=== PATIENT | female | born 1985 | race Two or more races ===

== ENCOUNTER 2022-08-16 09:56 | Outpatient (REF) | payer MEDICAID, OTHER, SELFPAY ==
--- NOTE | 2022-08-16 | PFT_ITS ---
INDICATIONS: Asthma. SPIROMETRY: The FEV1 to FVC of 90% with an FEV1 of 2.79 L, which is 109% predicted. FVC of 3.11 L, which is 101% predicted. No significant response to bronchodilators noted. Maximum voluntary ventilation 78% predicted. LUNG VOLUMES: Total lung capacity 97% predicted. DIFFUSION CAPACITY: DLCO 112% predicted. COMPARISONS: None. INTERPRETATION: No obstructive, nor restrictive ventilatory defects identified. No significant response to bronchodilators noted. There is a mild decrease in maximum voluntary ventilation, which could be secondary to deconditioning. Lung volumes are within normal limits. Diffusion capacity also within normal limits. If asthma is in the differential, methacholine challenge may be helpful in assessing for hyperreactive airways, otherwise clinical correlation warranted. Riccardo Reed MD MR/MODL / [id number]
== END 2022-08-16 09:57 | disposition home or self-care (01) ==
LOC: HO.RESP 09:56
PROVIDERS: PCP Family Medicine; Visit Provider Family Medicine
DX: J45.30 Mild persistent asthma, uncomplicated (principal)
CPT/HCPCS: 94060; 94727; 94729

== ENCOUNTER 2023-06-15 11:21 | Outpatient (REF) | payer MEDICAID, OTHER, SELFPAY ==
[2023-06-15 13:05] LABS: MANUAL DIFF FLAG NO
[2023-06-15 13:20] LABS: Basophils Absolute Auto 0.1 X10*3/uL (0.0-0.2); Basophils Percent Auto 2.1 % (0-2); Eosinophils Absolute Auto 0.5 X10*3/uL (0.0-0.4); Eosinophils Percent Auto 8.5 % (0-4); Hematocrit 41.8 % (37.0-47.0); Hemoglobin 13.4 g/dl (12.0-16.0); Imm Gran Abs Auto 0.02 X10*3/uL (0.00-0.03); Imm Gran Pct Auto 0.3 % (0.0-0.4); Lymphocytes Absolute Auto 2.4 X10*3/uL (1.2-4.9); Lymphocytes Percent Auto 39.1 % (20-40); Mean Corpuscular HGB Conc 32.1 g/dl (31.0-35.0); Mean Corpuscular Hemoglobin 30.3 pg (27.0-33.0); Mean Corpuscular Volume 94.6 fL (80.0-98.0); Mean Platelet Volume 11.6 fL (9.4-12.3); Monocytes Absolute Auto 0.4 X10*3/uL (0.1-1.2); Monocytes Percent Auto 6.8 % (2-11); Neutrophils Absolute Auto 2.7 x10*3/uL (2.0-8.3); Neutrophils Percent Auto 43.2 % (45-73); Platelet Count 292 X10*3/uL (160-400); Red Blood Count 4.42 X10*6/uL (4.20-5.50); Red Cell Distribution Width 13.4 % (11.0-16.0); White Blood Count 6.2 X10*3/uL (4.8-10.8)
[2023-06-15 13:30] LABS: Cholesterol 289 mg/dL (<200); HDL Cholesterol 60 mg/dL (>40); LDL Cholesterol Calculated 206 mg/dL (<100); Triglycerides 117 mg/dL (<150)
[2023-06-15 13:35] LABS: Estimated Average Glucose 80 mg/dL; Hemoglobin A1c % 4.4 % (<6.0)
[2023-06-15 13:45] LABS: Alanine Aminotransferase 16 U/L (0-31); Albumin Level 4.4 g/dL (3.5-5.0); Alkaline Phosphatase 82 U/L (39-117); Anion Gap 12 (12-20); Aspartate Amino Transferase 20 U/L (5-31); Bilirubin Total 0.4 mg/dL (0.0-1.0); Blood Urea Nitrogen 13 mg/dL (9-16); Carbon Dioxide 27 mmol/L (22-29); Chloride 105 mmol/L (96-108); Estimated Glomerular Filt Rate > 60; Glucose Random 84 mg/dL (60-115); Potassium 4.2 mmol/L (3.3-5.1); Sodium 140 mmol/L (135-145); Total Protein 7.8 g/dL (6.5-8.0)
[2023-06-15 13:51] LABS: TSH reflex Free T4 1.29 uIU/mL (0.32-4.0)
[2023-06-15 15:49] LABS: Reflex LDLD? No
== END 2023-06-15 11:22 | disposition home or self-care (01) ==
LOC: HO.HHCL 11:21
PROVIDERS: Visit Provider Family Medicine
DX: R53.83 Other fatigue (principal); E66.3 Overweight
CPT/HCPCS: 36415; 80053; 80061; 83036; 84443; 85025

== ENCOUNTER 2023-06-28 13:55 | Outpatient (REF) | payer MEDICAID, OTHER, SELFPAY ==
--- NOTE | ~2023-06-28 | US_ITS ---
EXAMINATION: US PELVIS CLINICAL INFORMATION: Abnormal uterine and vaginal bleeding; the last menstrual period was on 06/19/2023. COMPARISON: None available. TECHNIQUE: Ultrasound of the pelvis is performed using both transabdominal and transvaginal transducers along with Doppler. Transvaginal imaging is performed due to inadequate visualization transabdominally. FINDINGS: Uterus: The uterus is anteverted and retroflexed. The uterus measures 9.9 x 4.4 x 5.9 cm. Nabothian cysts are seen within the cervix. The double wall endometrial thickness is 0.9 mm. The uterus is smooth in contour and has normal myometrial echogenicity. No visible fibroid. Adnexa: Both ovaries are visualized. There is normal color flow to the adnexa. There is no ovarian torsion. There is no pelvic ascites or fluid collection. Right ovary measures 3.0 x 1.3 x 2.5 cm, volume 5.1 mL. Left ovary measures 2.9 x 1.0 x 2.4 cm, volume 3.7 mL. US/US pelvic and transvaginal IMPRESSION: Nabothian cysts are seen within the cervix. The examination is otherwise unremarkable.
== END 2023-06-28 13:56 | disposition home or self-care (01) ==
LOC: HO.US 13:55
PROVIDERS: PCP Family Medicine; Visit Provider Family Medicine
DX: N93.9 Abnormal uterine and vaginal bleeding, unspecified (principal)
CPT/HCPCS: 76830; 76856

== ENCOUNTER 2023-07-27 08:53 | Outpatient (REF) | payer MEDICAID, OTHER, SELFPAY ==
--- NOTE | ~2023-07-27 | MM_ITS ---
EXAMINATION: MM SCREENING DIGITAL BREAST TOMOSYNTHESIS, BILATERAL CLINICAL INFORMATION: Screening. Asymptomatic. COMPARISON: Mammography: This study is a baseline examination. TECHNIQUE: Digital breast tomosynthesis is performed in both the craniocaudal and mediolateral oblique views along with computer-aided detection (CAD). Synthesized 2D images are generated from the tomosynthesis. FINDINGS: The breasts are heterogeneously dense, which may obscure small masses (ACR BI-RADS breast composition Category c). There are no significant masses, abnormal calcifications, or other abnormalities. MM/MM tomosynthesis screening BI IMPRESSION: No mammographic evidence of malignancy. ASSESSMENT: BI-RADS BI-RADS 1 - Negative RECOMMENDATION: Routine annual mammography screening. 1 year F/U This examination should not preclude the clinical evaluation of a suspicious palpable abnormality. This patient's information was entered into a reminder system with a target due date for their next mammogram.
== END 2023-07-27 08:54 | disposition home or self-care (01) ==
LOC: HO.MAMMO 08:53
PROVIDERS: PCP Family Medicine; Visit Provider Family Medicine
DX: Z12.31 Encounter for screening mammogram for malignant neoplasm of breast (principal)
CPT/HCPCS: 77063; 77067

== ENCOUNTER → 2023-07-27 09:00 | Outpatient (BNV) | payer SELFPAY | PROVIDERS: PCP Family Medicine; Visit Provider Radiology Diagnostic Radiology | DX: Z12.31 Encounter for screening mammogram for malignant neoplasm of breast (principal) | CPT/HCPCS: 77063; 77067 ==

== ENCOUNTER 2024-05-29 17:29 | Outpatient (REF) | payer MEDICAID, OTHER, SELFPAY ==
[2024-05-31 16:58] LABS: HPV mRNA E6/E7 Not Detected (Not Detected)
== END 2024-05-29 17:30 | disposition home or self-care (01) ==
LOC: HO.HHCLNP 17:29
PROVIDERS: Visit Provider Family Medicine
DX: Z01.419 Encounter for gynecological examination (general) (routine) without abnormal findings (principal)
CPT/HCPCS: 36415; 87624; 88175

== ENCOUNTER 2024-07-29 08:29 | Outpatient (REF) | payer MEDICAID, OTHER, SELFPAY ==
--- NOTE | ~2024-07-29 | MM_ITS ---
EXAMINATION: MM SCREENING DIGITAL BREAST TOMOSYNTHESIS, BILATERAL CLINICAL INFORMATION: Screening. Asymptomatic. COMPARISON: Mammography: Comparison is made with available priors TECHNIQUE: Digital breast mammography with tomosynthesis is performed in both the craniocaudal and mediolateral oblique views along with computer-aided detection (CAD). FINDINGS: The breasts are heterogeneously dense, which may obscure small masses (ACR BI-RADS breast composition Category c). There are no significant masses, abnormal calcifications, or other abnormalities. MM/MM tomosynthesis screening BI IMPRESSION: No mammographic evidence of malignancy. ASSESSMENT: BI-RADS BI-RADS 1 - Negative RECOMMENDATION: Routine annual mammography screening. 1 year F/U This examination should not preclude the clinical evaluation of a suspicious palpable abnormality. This patient's information was entered into a reminder system with a target due date for their next mammogram. Electronically signed by: Fabiola Lange DO 08/06/2024 10:37 AM [facility]
== END 2024-07-29 08:30 | disposition home or self-care (01) ==
LOC: HO.MAMMO 08:29
PROVIDERS: PCP Family Medicine; Visit Provider Family Medicine
DX: Z12.31 Encounter for screening mammogram for malignant neoplasm of breast (principal)
CPT/HCPCS: 77063; 77067

== ENCOUNTER → 2024-07-29 08:45 | Outpatient (BNV) | payer MEDICAID, SELFPAY | PROVIDERS: PCP Family Medicine; Visit Provider Internal Medicine | DX: Z12.31 Encounter for screening mammogram for malignant neoplasm of breast (principal) | CPT/HCPCS: 77063; 77067 ==

== ENCOUNTER 2025-02-05 10:59 | Outpatient (REF) | payer MEDICAID, OTHER, SELFPAY ==
--- OUTSIDE RECORDS SUMMARY | 2025-02-05 12:03 | XMS_ITS | Referral Summary ---
Author Organization [facility] Address [address] [place] [address] Care Team Providers Care Air Sampler Name Role Phone Vee Perry Primary Care Provider [phone] Encounters Date Type Department Care Team Description 01/31/2025 Orders Only [facility] [address] [place] [phone] Auto Clutch Specialist: Shelli Telles MD Axillary fullness (Primary Dx) 11/21/2024 10:40 AM EST Follow-Up [facility] [address] [place] [phone] Auto Clutch Specialist: Shelli Telles MD Rheumatoid arthritis of multiple sites with negative rheumatoid factor (Primary Dx); Alopecia; Axillary fullness; Trochanteric bursitis of both hips from Last 3 Months Allergies Active Allergy Reactions Criticality Noted Date Comments Bee Venom Protein (Honey Bee) Anaphylaxis,Hives,Swelling High 11/21/2024 Oat Bran Heartburn 04/18/2024 [place] Itching,Palpitations,Rash 11/21/2024 Peanut Abdominal Pain,Hives,Swelling High 11/21/2024 Medications Ventolin HFA 90 mcg/actuation inhaler Inhale 2 puffs by mouth 4 times a day as needed. 12/12/19 24 Active albuterol 2.5 mg/3 mL (0.083%) nebulizer solution INHALE 1 AMPULE USING A NEBULIZER EVERY 6 HOURS NEEDED FOR WHEEZING. 11/27/19 24 Active cetirizine (ZyrTEC) 10 mg tablet SMARTSI Tablet(s) By Mouth Every Morning 11/22/19 24 Active cyclobenzaprin e (FLEXERIL) 5 mg tablet SMARTSI Tablet(s) By Mouth Every Night PRN 11/22/19 24 Active EPINEPHrine (EPIPEN) 0.3 mg/0.3 mL injection syringe INJECT INTRAMUSCULARLY DIRECTED ON PACKAGE AND GO TO EMERGENCY ROOM 11/27/19 24 Active Arnuity Ellipta 100 mcg/actuation blister with device SMARTSI Puff(s) By Mouth Every Morning Active meloxicam (MOBIC) 15 mg tablet SMARTSI Tablet(s) By Mouth Daily PRN 11/22/19 24 Active Asmanex HFA 200 mcg/actuation SMARTSI Puff(s) By Mouth Morning-Night 11/23/19 24 Active montelukast (SINGULAIR) 10 mg tablet SMARTSI Tablet(s) By Mouth Every Evening 11/22/19 24 Active adalimumab (Humira,CF, Pen) 40 mg/0.4 mL pen injector kitIndications :Rheumatoid arthritis of multiple sites with negative rheumatoid factor (HCC) Inject 0.4 mL (40 mg total) under the skin every 14 days. 0.8 mL 5 01/20/2025 3:56 PM EDT 10/15/19 25 025 Active folic acid (FOLVITE) 1 mg tabletIndicati ons:Rheumatoid arthritis of multiple sites with negative rheumatoid factor (HCC) Take 1 tablet (1 mg total) by mouth once a day. 90 tablet 3 11/26/2024 10:03 AM EST 11/21/19 25 026 Active Active Problems No known active problems Social History Tobacco Use Types Packs/Day Years Used Date Smoking Tobacco: Never Passive Smoke Exposure: Never Smokeless Tobacco: Never Tobacco Cessation:Counseling Given: Not Answered Alcohol Use Standard Drinks/Week Comments Not Currently 0 (1 standard drink = 0.6 oz pur e alcohol) Comments Unknown Sex and Gender Information Value Date Recorded Sex Assigned at Female 01/15/2024 1:23 PM EDT Legal Sex Female 9:26 AM EDT Gender Identity Not on file Sexual Orientation Not on file Last Filed Vital Signs Vital Sign Reading Time Taken Comments Blood Pressure 101/70 11/21/2024 10:03 AM EST Pulse 86 11/21/2024 10:03 AM EST Temperature 36.4 ??C (97.6 ??F) 11/21/2024 10:[address] Respiratory Rate - - Oxygen Saturation - - Inhaled Oxygen Concentration - - Weight 66.7 kg (147 lb) 11/21/2024 10:03 AM EST Height 149.9 cm (4' 11 ) 11/21/2024 10:03 AM EST Body Mass Index 29.69 11/21/2024 10:03 AM EST Plan of Treatment Upcoming Encounters Date Type Department Care Team (Late st Contact Info) Description 05/22/2025 10:40 AM EDT Follow-Up [facility] [address] [place] [phone] Auto Clutch Specialist: Shelli Telles MD [address] [place] [address] [phone] 05/27/2025 10:30 AM EDT Office Visit [facility] [address]th [address] [place] [address], [place] [phone] Auto Clutch Specialist: Ambrose Bryant PA [address] [place] [phone] Procedures * Due to [place] state law, this organization might not be sharing negative HIV tests. Procedure Name Priority Date/Time Associated Diagnosis Comments PETERSON, TITER AND PATTERN Routine 11:35 AM EST Rheumatoid arthritis of multiple sites with negative rheumatoid factor Alopecia CBC AUTO DIFFERENTIAL Routine 11/21/2024 11:35 AM EST Rheumatoid arthritis of multiple sites with negative rheumatoid factor Alopecia COMPREHENSIVE METABOLIC PANEL Routine 11/21/2024 11:35 AM EST Rheumatoid arthritis of multiple sites with negative rheumatoid factor Alopecia SEDIMENTATION RATE, AUTOMATED Routine 11/21/2024 11:35 AM EST Rheumatoid arthritis of multiple sites with negative rheumatoid factor Alopecia C-REACTIVE PROTEIN Routine 11/21/2024 11 :35 AM EST Rheumatoid arthritis of multiple sites with negative rheumatoid factor Alopecia PETERSON SPECIFIC ANTIBODY Routine 11/21/2024 11:35 AM EST Rheumatoid arthritis of multiple sites with negative rheumatoid factor Alopecia PETERSON SCREEN, IFA, W/REFLEX TO TITER & PATTERN Routine 11/21/2024 11:35 AM EST Rheumatoid arthritis of multiple sites with negative rheumatoid factor Alopecia DC ARTHROCENTESIS ASPIR&/INJ MAJOR JT/BURSA W/O US Routine 11/21/2024 10:40 AM EST Trochanteric bursitis of both hips HEPATITIS C ANTIBODY W/REFLEX TO HCV RNA, QUANTITATIVE PCR Routine 01/15/2024 2:50 PM EDT Rheumatoid arthritis of multiple sites with negative rheumatoid factor from Last 3 Months or Most Recently Relevant to Health Maintenance Results * Due to [place] state law, this organization might not be sharing negative HIV tests. * (ABNORMAL) PETERSON, Titer and Pattern (11/21/2024 11:35 AM EST) PETERSON Titer 1 1:40(H) titer 11/27/2024 2:01 PM EST [employer] Comment: A low level PTEERSON titer may be present in pre-clinical autoimmune diseases and normal individuals. ?Reference Range ?<1:40 ?Negative ?1:40-1:80 ?Low Antibody Level ?>1:80 ?Elevated Antibody Level PETERSON Pattern 1 Mitotic, Spindle Fibers(A) 11/27/2024 2:01 PM EST [employer] Comment: The spindle fibers between the poles are stained in mitotic cells, associated with cone-shaped decoration of the mitotic poles. The pattern is rare in Sjogren's syndrome, systemic lupus erythematosus (SLE), and other connective tissue diseases. AC-25: [employer]indle [employer] International Consensus on PETERSON Patterns (https://doi.org/10.1515/dwyf-3006-0298) Blood Structure of peripheral vein / Unknown Venipuncture / Unknown 11/21/2024 11:35 AM EST 11/21/2024 11:53 AM EST Narrative [facility] - 11/27/2024 2:01 PM EST [facility] Received Date: Shelli Billings MD LAB BLOOD ORDERABLES Final Res ult [address]rd Floor, [place] [address], [place] [phone] [employer] [facility] [address] [facility] [address] [facility], [place] [address], [place] [phone] * (ABNORMAL) CBC Auto Differential (11/21/2024 11:35 AM EST) WBC 6.5 3.8 - 10.8 10*3/uL 11/21/2024 12:01 PM EST [facility] RBC 4.25 3.80 - 5.10 10*6/uL 11/21/2024 12:01 PM EST [facility] Hemoglobin 12.8 11.7 - 15.5 g/dL 11/21/2024 12:01 PM EST [facility] Hematocrit 40.8 35.0 - 45.0 % 11/21/2024 12:01 PM EST [facility] MCV 96.0 80.0 - 100.0 fL 11/21/2024 12:01 PM EST [facility] MCH 30.1 27.0 - 33.0 pg 11/21/2024 12:01 PM EST [facility] MCHC 31.4(L) 32.0 - 36.0 g/dL 11/21/2024 12:01 PM [facility] RDW 13.2 11.0 - 15.0 % 11/21/2024 12:01 PM [facility] Platelets 321 140 - 400 10*3/uL 11/21/2024 12:01 PM [facility] MPV 10.5 7.5 - 12.5 fL 11/21/2024 12:01 PM [facility] Neutrophil % 46.1 % 11/21/2024 12:01 PM [facility] Immature Grans % 0.3 0.0 - 0.9 % 11/21/2024 12:01 PM [facility] Lymphocyte % 37.8 % 11/21/2024 12:01 PM [facility] Monocyte % 7.1 % 11/21/2024 12:01 PM [facility] Eosinophil % 7.0 % 11/21/2024 12:01 PM [facility] Basophil % 1.7 % 11/21/2024 12:01 PM [facility] Neutrophil # 2.98 1.50 - 7.80 10*3/uL 11/21/2024 12:01 PM [facility] Immature Grans # <0.03 <=0.03 10*3/uL 11/21/2024 12:01 PM [facility] Lymphocyte # 2.40 0.85 - 3.90 10*3/uL 11/21/2024 12:01 PM [facility] Monocyte # 0.50 0.20 - 0.95 10*3/uL 11/21/2024 12:01 PM [facility] Eosinophil # 0.50 0.02 - 0.50 10*3/uL 11/21/2024 12:01 PM [facility] Basophil # 0.10 0.00 - 0.20 10*3/uL 11/21/2024 12:01 PM EST [facility] nRBC % 0.0 /100 WBCs 11/21/2024 12:01 PM EST [facility] nRBC # <0.01 <0.01 10*3/uL 11/21/2024 12:01 PM EST [facility] Blood Structure of peripheral vein / Unknown Venipuncture / Unknown 11/21/2024 11:35 AM EST 11/21/2024 11:53 AM EST Shelli Billings MD LAB BLOOD ORDERABLES Final Res ult Performing Organization Address City/[facility]/ZIP Co de Phone Number [facility] [address] [place] [address], [place] * (ABNORMAL) PETERSON Screen, IFA, w/Reflex to Titer & Pattern (11/21/2024 11:35 AM EST) PETERSON Screen, IFA POSITIVE (A) NEGATIVE 11/27/2024 2:01 PM EST [employer] [facility] Comment: PETERSON IFA is a first line screen for detecting the presence of up to approximately 150 autoantibodies in various autoimmune diseases. A positive PETERSON IFA result is suggestive of autoimmune disease and reflexes to titer and pattern. Further laboratory testing may be considered if clinically indicated. For additional information, please refer to http://education.[employer]/faq/FJK895 (This link is being provided for informational/ educational purposes only.) ?? Blood Structure of peripheral vein / Unknown Venipuncture / Unknown 11/21/2024 11:35 AM EST 11/21/2024 11:53 AM EST Narrative [facility] - 11/27/2024 2:01 PM EST [facility] Received Date:[id number] Shelli Billings MD LAB BLOOD ORDERABLES Final Res ult Performing Organization Address City/[facility]/ZIP Co de Phone Number [facility] [address] [place] [address] [address]rd Floor, [place] [address], [place] [phone] [employer] [address] Floor, [place] [address], [place] [phone] * Sedimentation rate, automated (11/21/2024 11:35 AM EST) Sed Rate 5 <20 mm/Hr mm/Hr 11/21/2024 12:03 PM EST [facility] Blood Structure of peripheral vein / Unknown Venipuncture / Unknown 11/21/2024 11:35 AM EST 11/21/2024 11:53 AM EST us Shelli Billings MD LAB BLOOD ORDERABLES Final Res ult Performing Organization Address City/[facility]/ZIP Co de Phone Number [facility] [address] [place] [address], * C-reactive protein (11/21/2024 11:35 AM EST) Pathologist [facility] C Reactive Protein 3.4 <=9.9 mg/L 11/21/2024 12:27 PM EST [facility] Blood Structure of peripheral vein / Unknown Venipuncture / Unknown 11/21/2024 11:35 AM EST 11/21/2024 11:53 AM EST Shelli Billings MD LAB BLOOD ORDERABLES Final Res ult Performing Organization Address City/[facility]/ZIP Co de Phone Number [facility] [address] [place] [phone], [place] * PETERSON Specific Antibody w/Reflex to [place] (11/21/2024 11:35 AM EST) PETERSON Screen, Immunoassay NEGATIVE NEGATIVE 11/22/2024 5:11 PM EST [employer] [facility] Comment: A negative PETERSON Multiplex indicates the absence of detectable antibodies to component analytes consisting of double stranded DNA (dsDNA), chromatin, ribonucleoprotein (PAPER GLUING OPERATOR), Khan/PAPER GLUING OPERATOR (Sm/PAPER GLUING OPERATOR), Khan (Sm), SS-A, SS-B, Chitra-1, centromere B, Scl-70 and ribosomal P. A negative result should be interpreted in the context of the clinical and laboratory findings and does not rule out autoimmune disease characterized by other autoantibody specificities such as rheumatoid arthritis, autoimmune hepatitis, primary biliary cirrhosis, autoimmune thyroiditis, Potter's disease, pernicious anemia, autoimmune neuropathies, vasculitis, celiac disease, and bullous disease. For additional information, please refer to http://education.[employer]/faq/KFJ706 (This link is being provided for informational/ educational purposes only.) ?? Blood Structure of peripheral vein / Unknown Venipuncture / Unknown 11/21/2024 11:35 AM EST 11/21/2024 11:53 AM EST [facility] - 11/22/2024 5:11 PM EST [facility] Received Date: Shelil Billings MD LAB BLOOD ORDERABLES Final Res ult [facility] [address] [facility] [address]rd Floor, [place] [address], [employer] [facility] [address] [facility] [address], [place] [address], * (ABNORMAL) Comprehensive Metabolic Panel (11/21/2024 11:35 AM EST) NA 138 135 - 145 mmol/L 11/21/2024 12:27 PM EST [facility] K 4.1 3.5 - 5.3 mmol/L 11/21/2024 12:27 PM EST [facility] Cl 103 98 - 107 mmol/L 11/21/2024 12:27 PM EST [facility] CO2 25 22 - 32 mmol/L 11/21/2024 12:27 PM EST [facility] Anion Gap 10 5 - 15 11/21/2024 12:27 PM EST [facility] Glucose 89 65 - 99 mg/dL 11/21/2024 12:27 PM [facility] Creatinine 0.68 0.50 - 1.20 mg/dL 11/21/2024 12:27 PM [facility] Calcium 9.0 8.6 - 10.5 mg/dL 11/21/2024 12:27 PM [facility] Total Protein 7.2 6.0 - 8.0 g/dL 11/21/2024 12:27 PM [facility] Albumin 4.2 3.5 - 5.2 g/dL 11/21/2024 12:27 PM [facility] Bilirubin, Total 0.3 0.2 - 1.2 mg/dL 11/21/2024 12:27 PM [facility] Alkaline Phosphatase 83 35 - 129 U/L 11/21/2024 12:27 PM [facility] AST 26 10 - 40 U/L 11/21/2024 12:27 PM [facility] ALT 20 10 - 40 U/L 11/21/2024 12:27 PM [facility] BUN 11 7 - 23 mg/dL 11/21/2024 12:27 PM [facility] eGFR >90 >=60 mL/min/1. 73m2 11/21/2024 12:27 PM [facility] Comment:The estimated glomer ular filtration rate (eGFR) is calculated using a new formula developed by the NKF-ASN task force to eliminate race-based correction factors. The new formula uses serum/plasma creatinine, age, and gender to determine eGFR. A value below 60mls/min might indicate kidney disease and will be flagged. For additional information, see Sunita et al, Am J Kidney Dis. 2021;79(2):268- 288, A Unifying Approach for GFR estimation: Recommendations of the NKF-ASN Task Force on Reassessing the Inclusion of Race in Diagnosing Kidney Disease . Globulin, Total 3.0 2.1 - 4.2 g/dL 11/21/2024 12:27 PM EST [facility] A/G Ratio 1.4(L) 1.5 - 3.0 11/21/2024 12:27 PM EST [facility] Blood Structure of peripheral vein / Unknown Venipuncture / Unknown 11/21/2024 11:35 AM EST 11/21/2024 11:53 AM EST us Shelli Billings MD LAB BLOOD ORDERABLES Final Res ult [facility] [address] [place] [address], [place] * DC ARTHROCENTESIS ASPIR&/INJ MAJOR JT/BURSA W/O US (11/21/2024 10:40 AM EST) Narrative Shelli Billings MD - 11/21/2024 10:40 AM EST Shelli Billings MD ? 11/21/2024 12:16 PM Large Joint Arthrocentesis: L greater trochanteric bursa, R greater trochanteric bursa ? Indication(s): Trochanteric bursitis ? Date/Time: 11/21/2024 10:40 AM ? Performed by: Shelli Billings MD ? Authorized by: Shelli Billings MD Consent: ? Patient identity confirmed: Name and with patient and Verbally ? Verbal consent obtained: Yes ? Written consent obtained: Yes ? Risk and benefits discussed: Yes ? Written informed consent was obtained from the patient. ? Patient states understanding of procedure being performed: Yes ? Patient's understanding of procedure matches consent: Yes [place] Protocol: ? Procedure consent matches procedure scheduled: Yes ? All relevant documents/tests are correctly identified, labeled, and matched to patient: Yes ? Relevant tests/ Imaging studies available/reviewed: Yes ? Correct site marked: Yes ? Required blood products, implants, devices and special equipment available: N/A ? Immediately prior to the procedure a time out was called: Yes An attending physician was present for the procedure OR the procedure was performed by an Advanced Practice Provider: Yes Procedure Details: ? Location: hip - L greater trochanteric bursa and R greater trochanteric bursa ? Site Prep: Betadine Left ? Topical Anesthetic: ethyl chloride (cold spray) ? Syringe Size:5 mL ? Needle size: 25 G ? Approach: lateral ? Medications administered: 2 mL lidocaine PF 1% (10 mg/mL); 60 mg methylPREDNISolone acetate 80 mg/mL Right ? Topical Anesthetic: ethyl chloride (cold spray) ? Syringe Size:5 mL ? Needle size: 25 G ? Approach: lateral ? Medications administered: 2 mL lidocaine PF 1% (10 mg/mL); 60 mg methylPREDNISolone acetate 80 mg/mL ? Dressing: Band-Aid Post-procedure Details: ? Patient tolerance: patient tolerated the procedure well with no immediate complications ? Instructions: post-procedure instructions were reviewed ? Discharge: patient discharged from clinic in stable condition Shelli Billings MD IN CLINIC/BEDSIDE ORDERABLES F inal Result * Hepatitis C Antibody w/Reflex to HCV RNA, Quantitative PCR (01/15/2024 2:50 PM EDT) Pathologist [facility] Hepatitis C Antibody NON-REACT BRITTA NON-REACT BRITTA 01/16/2024 1:15 AM EDT [employer] [facility] Comment: HCV antibody was non-reactive. There is no laboratory evidence of HCV infection. In most cases, no further action is required. However, if recent HCV exposure is suspected, a test for HCV RNA (test code 69010) is suggested. For additional information please refer to http://education.[employer]/faq/UVS98e5 (This link is being provided for informational/ educational purposes only.) Blood Structure of peripheral vein / Unknown Venipuncture / Unknown 01/15/2024 2:50 PM EDT 01/15/2024 3:09 PM EDT Narrative [facility] - 01/16/2024 1:15 AM EDT [facility] Received Date: Shelli Billings MD LAB BLOOD ORDERABLES Final Res ult [facility] [address] [facility] 3rd Floor, [place] [address], [place] [phone] [facility] [address] [facility] 3rd Floor, [place] [address], [place] [phone] from Last 3 Months or Most Recently Relevant to Health Maintenance Insurance [facility] HSNO/FREE CARE Care Teams Air Sampler Relationship Specialty Start Date End Date Vee Perry [address] [place] [phone] PCP - General Family Medicine 12/30/22
--- OUTSIDE RECORDS SUMMARY | 2025-02-05 12:03 | XMS_ITS | Clinical Summary ---
Author Organization [facility] Address [address] [place] [address] Care Team Providers Care Equity Trader Name Role Phone Orlando Vee Primary Care Provider [phone] Allergies Active Allergy Reactions Criticality Noted Date Comments Bee Venom Protein (Honey Bee) Anaphylaxis,Hives,Swelling High 11/21/2024 Oat Bran Heartburn 04/18/2024 [place] Itching,Palpitations,Rash 11/21/2024 Peanut Abdominal Pain,Hives,Swelling High 11/21/2024 [...] Active Active Problems No known active problems Encounters Date Type Department Care Team Description 01/31/2025 Orders Only [facility] [address] [place] [phone] Tip Stretcher: Shelli Telles MD Axillary fullness (Primary Dx) 11/21/2024 10:40 AM EST Follow-Up [facility] [address] [place] [address] 127[address] Tip Stretcher: Shelli Telles MD Rheumatoid arthritis of multiple sites with negative rheumatoid factor (Primary Dx); Alopecia; Axillary fullness; Trochanteric bursitis of both hips from Last 3 Months Social History Tobacco Use Types Packs/Day Years [...] Info) Description 05/22/2025 10:40 AM EDT Follow-Up [facility] [address] [place] [address] [phone] Tip Stretcher: Shelli Telles MD [address] [place] [address] [phone] 05/27/2025 10:30 AM EDT Office Visit [facility] 4th Floor [address] [facility], [place] [address] Tip Stretcher: Ambrose Bryant PA [address] [place] [address] [phone] Health Maintenance Due Date Last Done Comments Cervical Cancer Screening 1983 HIV Screening 1983 HPV and Pap Smear 1983 Pap Smear 1983 Varicella Vaccines (1 of 2 - 13+ 2-dose series) 1996 Hepatitis B Vaccines (1 of 3 - 19+ 3-dose series) 2002 COVID-19 Vaccine (2023-2 5 season) 2024 07/21/2021, 01/07/2021, 12/10/2020 Alcohol/Substance Use Screening 09/25/2024 Depression Screening and Follow-Up 09/25/2024 Social Drivers of Health Adia ual Screening 09/25/2024 Influenza Vaccine (Season Ended) 2025 07/30/2021, 08/05/2020, 06/28/2019, Additional history exists Mammogram 07/27/2025 07/27/2023 Pneumococcal Vaccine: Pediat gabe (0-5 Years) and At-Risk Patients (6-50 Years) (3 of 3 - PCV20 or PCV21) 2033 01/19/2015, 04/27/2011 DTaP,Tdap,and Td Vaccines (3 - Td or Tdap) 05/29/2034 05/29/2024, 04/27/2011 RSV Vaccine (60+ years old a nd patients) (1 - 1-dose 75+ series) 2058 Hepatitis C Screening Completed 01/15/2024 Procedures * Due to [place] state law, this organization might not be [...] multiple sites with negative rheumatoid factor Alopecia CO ARTHROCENTESIS ASPIR&/INJ MAJOR JT/BURSA W/O US Routine 11/21/2024 10:40 AM EST Trochanteric bursitis of both hips HEPATITIS C ANTIBODY W/REFLEX TO HCV RNA, QUANTITATIVE PCR Routine 01/15/2024 2:50 PM EDT Rheumatoid arthritis of multiple sites with negative rheumatoid factor from Last 3 Months or Most Recently Relevant to Health Maintenance Results * Due to [place] state law, this organization might not be sharing negative HIV tests. * (ABNORMAL) PETERSON, Titer and Pattern (11/21/2024 11:35 AM EST) PETERSON Titer 1 1:40(H) titer 11/27/2024 2:01 PM EST [employer] To Get Approved For Comment: A low level PETERSON titer may be present in pre-clinical autoimmune diseases and normal individuals. ?Reference Range ?<1:40 ?Negative ?1:40-1:80 ?Low Antibody Level ?>1:80 ?Elevated Antibody Level PETERSON Pattern 1 Mitotic, Spindle Fibers(A) 11/27/2024 2:01 PM EST [employer] To Get Approved For Comment: The spindle fibers between the poles are stained in mitotic cells, associated with cone-shaped decoration of the mitotic poles. The pattern is rare in Sjogren's syndrome, systemic lupus erythematosus (SLE), and other connective tissue diseases. AC-25: Spindle Fibers International Consensus on PETERSON Patterns (https://doi.org/10.1515/jxky-3281-9700) Blood Structure of peripheral vein / Unknown Venipuncture / Unknown 11/21/2024 11:35 AM EST 11/21/2024 11:53 AM EST Narrative [facility] - 11/27/2024 2:01 PM EST [facility] Received Date: Shelli Billings MD LAB BLOOD ORDERABLES Final Res ult [facility] [address] [facility] [address] Floor, [place] [address], [place] [phone] [email or web address] [facility] [address] [facility] 3rd Floor, [place] [address], [place] [phone] * (ABNORMAL) CBC Auto Differential (11/21/2024 11:35 AM EST) WBC 6.5 3.8 - 10.8 10*3/uL 11/21/2024 12:01 PM EST [facility] RBC 4.25 3.80 - 5.10 10*6/uL 11/21/2024 12:01 PM [facility] Hemoglobin 12.8 11.7 - 15.5 g/dL 11/21/2024 12:01 PM [facility] Hematocrit 40.8 35.0 - 45.0 % 11/21/2024 12:01 PM EST [facility] MCV 96.0 80.0 - 100.0 fL 11/21/2024 12:01 PM [facility] MCH 30.1 27.0 - 33.0 pg 11/21/2024 12:01 PM [facility] MCHC 31.4(L) 32.0 - 36.0 g/dL 11/21/2024 12:01 PM EST [facility] RDW 13.2 11.0 - 15.0 % 11/21/2024 12:01 PM EST [facility] Platelets 321 140 - 400 10*3/uL 11/21/2024 12:01 PM [facility] MPV 10.5 7.5 - 12.5 fL 11/21/2024 12:01 PM [facility] Neutrophil % 46.1 % 11/21/2024 12:01 PM [facility] Immature Grans % 0.3 0.0 - 0.9 % 11/21/2024 12:01 PM EST [facility] Lymphocyte % 37.8 % 11/21/2024 12:01 PM EST [facility] Monocyte % 7.1 % 11/21/2024 12:01 PM [facility] Eosinophil % 7.0 % 11/21/2024 12:01 PM EST [facility] Basophil % 1.7 % 11/21/2024 12:01 PM [facility] Neutrophil # 2.98 1.50 - 7.80 10*3/uL 11/21/2024 12:01 PM [facility] Immature Grans # <0.03 <=0.03 10*3/uL 11/21/2024 12:01 PM EST [facility] Lymphocyte # 2.40 0.85 - 3.90 10*3/uL 11/21/2024 12:01 PM EST [facility] Monocyte # 0.50 0.20 - 0.95 10*3/uL 11/21/2024 12:01 PM EST [facility] Eosinophil # 0.50 0.02 - 0.50 10*3/uL 11/21/2024 12:01 PM EST [facility] Basophil # 0.10 0.00 - 0.20 10*3/uL 11/21/2024 12:01 PM EST [facility] nRBC % 0.0 /100 WBCs 11/21/2024 12:01 PM EST [facility] nRBC # <0.01 <0.01 10*3/uL 11/21/2024 12:01 PM [facility] Blood Structure of peripheral vein / Unknown Venipuncture / Unknown 11/21/2024 11:35 AM EST 11/21/2024 11:53 AM EST Shelli Billings MD LAB BLOOD ORDERABLES Final Res ult [facility] [address] [place] [address], [place] * (ABNORMAL) PETERSON Screen, IFA, w/Reflex to Titer & Pattern (11/21/2024 11:35 AM EST) PETERSON Screen, IFA POSITIVE (A) NEGATIVE 11/27/2024 2:01 PM EST [employer] [facility] Comment: PETERSON IFA is a first line screen for detecting the presence of up to approximately 150 autoantibodies in various autoimmune diseases. A positive PETERSON IFA result is suggestive of autoimmune disease and reflexes to titer and pattern. Further laboratory testing may be considered if clinically indicated. For additional information, please refer to http://education.[employer]/faq/HTW584 (This link is being provided for informational/ educational purposes only.) ?? Blood Structure of peripheral vein / Unknown Venipuncture / Unknown 11/21/2024 11:35 AM EST 11/21/2024 11:53 AM EST Narrative [facility] 11/27/2024 2:01 PM EST [facility] Received Date:[id number] us Shelli Billings MD LAB BLOOD ORDERABLES Final Res ult Performing Organization Address [facility] Co de Phone Number [facility] [address] [facility] [address], [place] [address], [place] [phone] [email or web address] [facility] [address] [facility] 3rd Floor, [place] [address], [place] [phone] * Sedimentation rate, automated (11/21/2024 11:35 AM EST) Sed Rate 5 <20 mm/Hr mm/Hr 11/21/2024 12:03 PM EST [facility] Blood Structure of peripheral vein / Unknown Venipuncture / Unknown 11/21/2024 11:35 AM EST 11/21/2024 11:53 AM EST us Shelli Billings MD LAB BLOOD ORDERABLES Final Res ult Performing Organization Address [facility] Co de Phone Number [facility] [address] [place] [address], * C-reactive protein (11/21/2024 11:35 AM EST) Pathologist [facility] C Reactive Protein 3.4 <=9.9 mg/L 11/21/2024 12:27 PM EST [facility] Blood Structure of peripheral vein / Unknown Venipuncture / Unknown 11/21/2024 11:35 AM EST 11/21/2024 11:53 AM EST Shelli Billings MD LAB BLOOD ORDERABLES Final Res ult Performing Organization Address [facility] de Phone Number [facility] [address] [place] [phone], [place] * PETERSON Specific Antibody w/Reflex to [place] (11/21/2024 11:35 AM EST) Pathologist [facility] PETERSON Screen, Immunoassay NEGATIVE NEGATIVE 11/22/2024 5:11 PM EST [employer] [facility] Comment: A negative PETERSON Multiplex indicates the absence of detectable antibodies to component analytes consisting of double stranded DNA (dsDNA), chromatin, ribonucleoprotein ([employer] ATTORNEY), Khan/[employer]ORNEY (Sm/[employer] ATTORNEY), Khan (Sm), SS-A, SS-B, Chitra-1, centromere B, Scl-70 and ribosomal P. A negative result should be interpreted in the context of the clinical and laboratory findings and does not rule out autoimmune disease characterized by other autoantibody specificities such as rheumatoid arthritis, autoimmune hepatitis, primary biliary cirrhosis, autoimmune thyroiditis, Collingsworth's disease, pernicious anemia, autoimmune neuropathies, vasculitis, celiac disease, and bullous disease. For additional information, please refer to http://education.[employer]/faq/WVS440 (This link is being provided for informational/ educational purposes only.) ?? Blood Structure of peripheral vein / Unknown Venipuncture / Unknown 11/21/2024 11:35 AM EST 11/21/2024 11:53 AM EST Narrative [facility] - 11/22/2024 5:11 PM EST [facility] Received Date: Shelli Billings MD LAB BLOOD ORDERABLES Final Res ult [facility] [address] [facility] [address], [place] [address], [place] [phone] [email or web address] [facility] [address] [facility] 3rd Floor, [place] [address], [place] [phone] * (ABNORMAL) Comprehensive Metabolic Panel (11/21/2024 11:35 AM EST) NA 138 135 - 145 mmol/L 11/21/2024 12:27 PM EST [facility] K 4.1 3.5 - 5.3 mmol/L 11/21/2024 12:27 PM EST [facility] Cl 103 98 - 107 mmol/L 11/21/2024 12:27 PM [facility] CO2 25 22 - 32 mmol/L 11/21/2024 12:27 PM EST [facility] Anion Gap 10 5 - 15 11/21/2024 12:27 PM EST [facility] Glucose 89 65 - 99 mg/dL 11/21/2024 12:27 PM EST [facility] Creatinine 0.68 0.50 - 1.20 mg/dL 11/21/2024 12:27 PM EST [facility] Calcium 9.0 8.6 - 10.5 mg/dL 11/21/2024 12:27 PM EST [facility] Total Protein 7.2 6.0 - 8.0 g/dL 11/21/2024 12:27 PM [facility] Albumin 4.2 3.5 - 5.2 g/dL 11/21/2024 12:27 PM EST [facility] Bilirubin, Total 0.3 0.2 - 1.2 mg/dL 11/21/2024 12:27 PM EST [facility] Alkaline Phosphatase 83 35 - 129 U/L 11/21/2024 12:27 PM EST [facility] AST 26 10 - 40 U/L 11/21/2024 12:27 PM EST [facility] ALT 20 10 - 40 U/L 11/21/2024 12:27 PM EST [facility] BUN 11 7 - 23 mg/dL 11/21/2024 12:27 PM EST [facility] eGFR >90 >=60 mL/min/1. 73m2 11/21/2024 12:27 PM [facility] Comment:The estimated glomer ular filtration rate (eGFR) is calculated using a new formula developed by the NKF-ASN task force to eliminate race-based correction factors. The new formula uses serum/plasma creatinine, age, and gender to determine eGFR. A value below 60mls/min might indicate kidney disease and will be flagged. For additional information, see Dorsey et al, Am J Kidney Dis. 2021;79(2):268- 288, A Unifying Approach for GFR estimation: Recommendations of the NKF-ASN Task Force on Reassessing the Inclusion of Race in Diagnosing Kidney Disease . Globulin, Total 3.0 2.1 - 4.2 g/dL 11/21/2024 12:27 PM EST [facility] A/G Ratio 1.4(L) 1.5 - 3.0 11/21/2024 12:27 PM EST [facility] Blood Structure of peripheral vein / Unknown Venipuncture / Unknown 11/21/2024 11:35 AM EST 11/21/2024 11:53 AM EST us Shelli Billings MD LAB BLOOD ORDERABLES Final Res ult [facility] [address] [place] [address], * CO ARTHROCENTESIS ASPIR&/INJ MAJOR JT/BURSA W/O US (11/21/2024 10:40 AM EST) Shelli Oneil MD - 11/21/2024 10:40 AM EST Shelli [...] Patient's understanding of procedure matches consent: Yes [place] Protocol: ? Procedure consent matches procedure scheduled: [...] patient discharged from clinic in stable condition us Shelli Billings MD IN CLINIC/BEDSIDE ORDERABLES F inal Result * Hepatitis C Antibody w/Reflex to HCV RNA, Quantitative PCR (01/15/2024 2:50 PM EDT) Hepatitis C Antibody NON-REACT BRITTA NON-REACT BRITTA 01/16/2024 1:15 AM EDT [employer] To Get Approved For Comment: HCV antibody was non-reactive. There is no laboratory evidence of HCV infection. In most cases, no further action is required. However, if recent HCV exposure is suspected, a test for HCV RNA (test code 70487) is suggested. For additional information please refer to http://education.[employer]/faq/BYC45v9 (This link is being provided for informational/ educational purposes only.) Blood Structure of peripheral vein / Unknown Venipuncture / Unknown 01/15/2024 2:50 PM EDT 01/15/2024 3:09 PM EDT Narrative [facility] - 01/16/2024 1:15 AM EDT [facility] Received Date: us Shelli Billings MD LAB BLOOD ORDERABLES Final Res ult [facility] [address] [facility] [address], [place] [address], [place] [phone] [employer] [facility] [address] [facility] 3rd Floor, [place] [address], [place] [phone] from Last 3 Months or Most Recently Relevant to Health Maintenance Insurance [place] HS[place] C[employer] Care Teams Equity Trader Relationship Specialty Start Date End Date Vee Perry [address] [place] [id number] PCP - General Family Medicine 12/30/22
--- OUTSIDE RECORDS SUMMARY | 2025-02-05 12:03 | XMS_ITS | Encounter Summary ---
Author Organization [facility] Address [address] [place] [address] Care Team Providers Care Manager Food Safety Name Role Phone Vee Perry Primary Care Provider [phone] Encounter Details Date Type Department Care Team (Late st Contact Info) Description 01/31/2025 Orders Only [facility] [address] [place] [phone] Csr: Shelli Telles MD [address] [place] [phone] Axillary fullness (Primary Dx) Social History Tobacco Use Types Packs/Day Years Used Date Smoking Tobacco: Never Passive Smoke Exposure: Never Smokeless Tobacco: Never Alcohol Use Standard Drinks/Week Comments Not Currently 0 (1 standard drink = 0.6 oz pur e alcohol) Comments Unknown Sex and Gender Information Value Date Recorded Sex Assigned at Female 01/15/2024 1:23 PM EDT Legal Sex Female 9:26 AM EDT Gender Identity Not on file Sexual Orientation Not on file documented as of this encounter Plan of Treatment Upcoming Encounters Date Type Department Care Team (Late st Contact Info) Description 05/22/2025 10:40 AM EDT Follow-Up [facility] [address] [place] [address] Csr: Shelli Telles MD [address] [place] [phone] 05/27/2025 10:30 AM EDT Office Visit [facility] 4th Floor [address] [facility], [place] [address] Csr: Ambrose Bryant PA [address] [place] [address] Scheduled Orders Name Type Priority Associated Diagnoses Orde r Schedule US Bilateral Breast With Left Axilla Imaging Routine Axillary fullness Expected: 01/31/2025, Expires: 04/02/2026 documented as of this encounter Visit Diagnoses Diagnosis Axillary fullness- Primary documented in this encounter Care Teams Manager Food Safety Relationship Specialty Start Date End Date Vee Perry [address] [place] [phone] PCP - General Family Medicine 12/30/22 documented as of this encounter
[2025-02-05 13:56] LABS: Alanine Aminotransferase 25 U/L (0-31); Albumin Level 4.3 g/dL (3.5-5.0); Alkaline Phosphatase 92 U/L (39-117); Anion Gap 13 (12-20); Aspartate Amino Transferase 28 U/L (5-31); Bilirubin Total 0.5 mg/dL (0.0-1.0); Blood Urea Nitrogen 7 mg/dL (9-16); Calcium 8.8 mg/dL (8.4-10.2); Carbon Dioxide 26 mmol/L (22-29); Chloride 105 mmol/L (96-108); Cholesterol 291 mg/dL (<200); Estimated Glomerular Filt Rate > 60; Glucose Random 87 mg/dL (60-115); HDL Cholesterol 62 mg/dL (>40); LDL Cholesterol Calculated 204 mg/dL (<100); Sodium 140 mmol/L (135-145); Total Protein 7.6 g/dL (6.5-8.0); Triglycerides 126 mg/dL (<150)
[2025-02-05 13:58] LABS: Estimated Average Glucose 85 mg/dL; Hemoglobin A1C 92.0149 umol/L; Hemoglobin A1c % 4.6 % (<6.0); Total Hemoglobin (HGBA1C) 3440.0464 umol/L
[2025-02-05 14:14] LABS: TSH reflex Free T4 2.17 uIU/mL (0.32-4.0)
[2025-02-05 14:22] LABS: Reflex LDLD? No
[2025-02-07 13:58] LABS: Follicle Stimulating Hormone 4.1 mIU/mL; Prolactin Undiluted 4.1 ng/mL
[2025-02-18 23:24] LABS: Estradiol Ultra Sensitive 95 pg/mL
== END 2025-02-05 11:00 | disposition home or self-care (01) ==
LOC: HO.HHCL 10:59
PROVIDERS: Visit Provider Family Medicine
DX: N92.6 Irregular menstruation, unspecified (principal); R63.5 Abnormal weight gain; Z13.1 Encounter for screening for diabetes mellitus; Z13.220 Encounter for screening for lipoid disorders
CPT/HCPCS: 36415; 80053; 80061; 82670; 83001; 83036; 84146; 84443

== ENCOUNTER 2025-09-22 17:37 | Outpatient (REF) | payer MEDICAID, OTHER, SELFPAY ==
--- OUTSIDE RECORDS SUMMARY | 2025-09-22 10:15 | XMS_ITS | Encounter Summary ---
Author Organization [employer] Address [address] [place] [address] 7t [place] [address] Care Team Providers Care Field Cane Scaler Name Role Phone Vee Perry MD Primary Care Provider [phone] Encounter Details Date Type Department Care Team (Latest Contact Info) Description 09/22/2025 10:15 AM EST Office Visit [facility] [address] [place], [place] [phone] Vee Perry MD [address] [place], [place] [phone] Class 1 obesity with serious comorbidity and body mass index (BMI) of 30.0 to 30.9 in adult, unspecified obesity type (Primary Dx); Rheumatoid arthritis of multiple sites with negative rheumatoid factor (CMS/HCC) (HCC); Fibromyalgia; Long-term use of immunosuppressant medication; Dyslipidemia; Nephrolithiasis; Left axillary pain; Left axillary swelling; Dysuria; Encounter for immunization Social History Tobacco Use Types Packs/Day Years Used Date Smoking Tobacco: Never Passive Smoke Exposure: Never Smokeless Tobacco: Never Alcohol Use Standard Drinks/Week Comments Never 0 (1 standard drink = 0.6 oz pur e alcohol) Depression Answer Date Recorded Patient Health Questionnaire-9 Score 3 02/05/2025 Patient Health Questionnaire-9 Score 3 02/05/2025 Last PHQ-9: Questionnaire Data Not on file 0 02/05/2025 Housing Stability Answer Date Recorded What is your housing situation today? I have yamileth ga 02/05/[address] you li ve. Do you have problems with any of the following? None of the above 02/05/2025 Food Insecurity Answer Date Recorded Within the past 12 months, y ou worried that your food would run out before you got money to buy more: Never True 02/05/2025 Within the past 12 months,th e food you bought just didn't last and you didn't have enough money to get more: Never True Transportation Answer Date Recorded In the past 12 months, has l ack of transportation kept you from medical appts, meetings, work or from getting things needed for daily living? No 02/05/2025 Utilities Answer Date Recorded In the past 12 months, has t he electric, gas, oil or water company threatened to shut off services in your home? No 02/05/2025 Depression Answer Date Recorded Patient Health Questionnaire-2 Score 0 02/05/2025 Internet Access Answer Date Recorded Internet Access Q1 Yes 02/05/2025 Internet Access Q2 Not on file 02/05/2025 Comments No Sex and Gender Information Value Date Recorded Sex Assigned at Female 07/25/2022 10:21 AM EDT Legal Sex Female 10:21 AM EDT Gender Identity Female 07/25/2022 10:21 AM EDT Sexual Orientation Straight 07/25/2022 10 :21 AM EDT documented as of this encounter Last Filed Vital Signs Vital Sign Reading Time Taken Comments Blood Pressure 120/88 09/22/2025 10:37 AM EST Pulse 113 09/22/2025 10:37 AM EST Temperature 36.1 C (96.9 F) 09/22/2025 10:37 AM EST Respiratory Rate 14 09/22/2025 10:37 AM EST Oxygen Saturation 98% 09/22/2025 10:37 AM EST Inhaled Oxygen Concentration - - Weight 67.6 kg (149 lb) 09/22/2025 10:37 AM EST Height 149.9 cm (4' 11 ) 09/22/2025 10:37 AM EST Body Mass Index 30.09 09/22/2025 10:37 AM EST documented in this encounter Miscellaneous Notes * Assessment & Plan Note - Vee Perry MD - 09/21/2025 5:30 PM ESTAssociated Problem(s): Left axillary pain - Followed by [facility], last visit in August 2025. - Being arranged for diagnostic mammography and ultrasound * Assessment & Plan Note - Vee Perry MD - 09/21/2025 5:28 PM ESTAssociated Problem(s): Obesity - Continue working on lifestyle modifications - Due to her RA, her exercise capacity is sometimes limited - Patient would like to try GLP1RA - Start phentermine as step-therapy Dietary Recommendations: Fruits, vegetables, whole grains, protein foods, and fat-free or low-fat dairy products are healthychoices. Eat different types of protein foods in your diet. This can include seafood, lean meats, poultry, beans, peas, lentils, nuts, seeds, soy products, and eggs. Limit foods and beverages higher in added sugars, saturated fat, and sodium. Exercise Recommendations: At least 150 minutes of moderate-intensity physical activity per week, or an equivalent combinationof moderate- and vigorous-intensity activity * Assessment & Plan Note - Vee Perry MD - 09/21/2025 5:28 PM ESTAssociated Problem(s): Dyslipidemia - most recent lipid profile in January 2025 - start atorvastatin 10 mg qhs - Treatment Hx: patient disliked rosuvastatin 5 mg due to headache - Continue working on lifestyle modification * Assessment & Plan Note - Vee Perry MD - 09/21/2025 5:28 PM ESTAssociated Problem(s): Long-term use of immunosuppressant medication - discussed about safety and protection - discussed about keeping immunizations up to date; pt declines immunizations * Assessment & Plan Note - Vee Perry MD - 09/21/2025 5:28 PM ESTAssociated Problem(s): Fibromyalgia -Continue judicious use of cyclobenzaprine -Continue Yoga -Optimize Tx for anxiety / adjustment disorder / depression -Recommended aupuncture * Assessment & Plan Note - Vee Perry MD - 09/21/2025 5:28 PM ESTAssociated Problem(s): Rheumatoid arthritis (CMS/HCC) (HCC) - Drug Abuse Counselor: Dr. Manuelito Graves. Seen in April 2025 - Current medication: adalimumab (Humira) 40 mg q2wk. - Treatment Hx; Arava and prednisone, which were discontinued in 2012 due to side effects, including hair loss and weight gain. Previously following with Dr. Oconnor @ [facility]. - Co-diagnosis of fibromyalgia due to pain in trigger points. She was prescribed cyclobenzaprine for this symptom, but not taking it. - She is prescribed meloxicam for inflammatory arthritic pain, but not taking - Continue Yoga. - Recommended acupuncture. * Assessment & Plan Note - Vee Perry MD - 09/21/2025 5:28 PM ESTAssociated Problem(s): Nephrolithiasis - Seen in [facility] ED on 07/01/2025 due to right lower quadrant pain. CT scan showed normal appendix, and a 4 mm size right kidney stone, obstructing the proximal right ureter and with mild right hydronephrosis. - Prescribed tamsulosin in ED, and was advised to follow-up with urology documented in this encounter Plan of Treatment Scheduled Orders Name Type Priority Associated Diagnoses Orde r Schedule Culture, Urine, Routine Microbiology Routine Nephrolithiasis Expected: 09/22/2025 (Approximate), Expires: 09/22/2026 documented as of this encounter Procedures Procedure Name Priority Date/Time Associated Diagnosis Comments POCT URINALYSIS DIPSTICK Routine 09/22/2025 12:00 PM EST Dysuria documented in this encounter Results * (ABNORMAL) POCT urinalysis dipstick manually resulted (CPT 19412) (09/22/2025 12:00 PM EST) Color, UA Colorless Clarity, UA Clear Glucose, UA Negative Bilirubin, UA Negative Ketones, UA Negative Spec Grav, UA 1.020 Blood, UA Positive(A) Negative, None Detected Comment:trace pH, UA 7.0 Protein, UA Negative Urobilinogen, UA 0.2 Leukocytes, UA Negative Negative, Rare, Trace, 1+ (17), 2+ (35), 3+ (70), Trace (15) Nitrite, UA Negative Negative, None Detected Appearance, UA clear QC Media Lot # [id number] Lot# Expiration Date [id number] Urine (Urine, Random) 09/22/2025 12:00 PM EST Vee Perry MD POINT OF CARE TEST ENTER/EDIT OR DERABLES Final Result documented in this encounter Visit Diagnoses Diagnosis Class 1 obesity with serious comorbidity and body mass index (BMI) of 30.0 to 30.9 in adult, unspecified obesity type- Primary Rheumatoid arthritis of multiple sites with negative rheumatoid factor (CMS/HCC) (HCC) Fibromyalgia Unspecified myalgia and myositis Long-term use of immunosuppressant medication Dyslipidemia Other and unspecified hyperlipidemia Nephrolithiasis Calculus of kidney Left axillary pain Left axillary swelling Dysuria Encounter for immunization documented in this encounter Additional Health Concerns Assessment Noted Time PHQ-9 Depression Total Score: 3 02/06/20 25 10:13 AM EDT documented as of this encounter Care Teams Field Cane Scaler Relationship Specialty Start Date End Date Vee Perry MD [address] [place] [address] PCP - General Family Medicine 09/25/18 documented as of this encounter
--- OUTSIDE RECORDS SUMMARY | 2025-09-22 18:11 | XMS_ITS | Encounter Summary ---
Author Organization [facility] Address [address] [place] [address] Care Team Providers Care Block Handler Name Role Phone Vee Perry Primary Care Provider [phone] Reason for Referral * Consultation (Routine) - Authorized Specialty Diagnoses / Procedures Referred By Chula sher Referred To Contact Urology Diagnoses Nephrolithiasis Vee Perry [address] [place] [address] Phone: tel: fax: [facility] [address] [place] [address] Phone: tel: fax: Referral ID Status Reason Start Date Expiration Date Visits Requested Visits Authorized [id number] Authorized Specialty Services Required 09/11/2026 6 6 Encounter Details Date Type Department Care Team (Latest Contact Info) Description 08/12/2025 Transcribe Orders [facility] Physician Referral Services [address] [place] [address] Vee Perry [address] [place], [place] [phone] Nephrolithiasis (Primary Dx) Social History Tobacco Use Types Packs/Day Years Used Date Smoking Tobacco: Never Passive Smoke Exposure: Never Smokeless Tobacco: Never Alcohol Use Standard Drinks/Week Comments Not Currently 0 (1 standard drink = 0.6 oz pur e alcohol) Comments Unknown Sex and Gender Information Value Date Recorded Sex Assigned at Female 01/15/2024 1:23 PM EDT Legal Sex Female 9:26 AM EDT Gender Identity Female 05/15/2025 12:18 PM EDT Sexual Orientation Straight 05/15/2025 12 :18 PM EDT documented as of this encounter Plan of Treatment Upcoming Encounters Date Type Department Care Team (Late st Contact Info) Description 11/20/2025 10:40 AM EST Follow-Up [facility] [address] [place] [address] Transfer Agent: Shelli Telles MD [address] [place] [address] 11/27/2025 8:30 AM EST Office Visit [facility] [address] [place] [address] Transfer Agent: Sharonda Pearce MD [address] [place] [address] 12/04/2025 10:00 AM EDT Office Visit [address] [address] Transfer Agent: Racquel Johansen NP [address] [place] [address] 03/19/2026 10:00 AM EDT Office Visit [facility] [address]th [address] [place] [address], [place] [address] Transfer Agent: Michelle Lee MD [address] [place] [address] Scheduled Referrals Name Type Priority Associated Diagnoses Order Schedule Ambulatory referral to Urology Outpatient Referral Routine Nephrolithiasis Expected: 08/12/2025, Expires: 09/11/2026 documented as of this encounter Visit Diagnoses Diagnosis Nephrolithiasis- Primary Calculus of kidney documented in this encounter Care Teams Block Handler Relationship Specialty Start Date End Date ChiarasuzanneVee [address] [place] [address] PCP - General Family Medicine 12/30/22 documented as of this encounter
--- OUTSIDE RECORDS SUMMARY | 2025-09-22 18:11 | XMS_ITS | Encounter Summary ---
Author Organization [employer] Address [address] [facility] 7t [place] [address] Care Team Providers Care Premix Concrete Batcher Name Role Phone Vee Perry MD Primary Care Provider [phone] Encounter Details Date Type Department Care Team ([facility] st Contact Info) Description 09/14/2023 Orders Only [facility] MEDICINE [address] [place], [place] [phone] Vee Perry MD [address] [place], [place] [phone] Irregular periods (Primary Dx) Social History Tobacco Use Types Packs/Day Years Used Date Smoking Tobacco: Never Passive Smoke Exposure: Never Smokeless Tobacco: Never Depression Answer Date Recorded Patient Health Questionnaire-9 Score 0 12/14/2022 Housing Stability Answer Date Recorded What is your housing situation today? I have yamilethleti ga 07/16/[address] you li ve. Do you have problems with any of the following? None of the above 07/16/2023 Food Insecurity Answer Date Recorded Within the past 12 months, y ou worried that your food would run out before you got money to buy more: Never True 07/16/2023 Within the past 12 months,th e food you bought just didn't last and you didn't have enough money to get more: Never True Transportation Answer Date Recorded In the past 12 months, has l ack of transportation kept you from medical appts, meetings, work or from getting things needed for daily living? No 07/16/2023 Utilities Answer Date Recorded In the past 12 months, has t he electric, gas, oil or water company threatened to shut off services in your home? No 07/16/2023 Depression Answer Date Recorded Patient Health Questionnaire-2 Score 0 12/14/2022 Comments Unknown Sex and Gender Information Value Date Recorded Sex Assigned at Female 07/25/2022 10:21 AM EDT Legal Sex Female 10:21 AM EDT Gender Identity Female 07/25/2022 10:21 AM EDT Sexual Orientation Straight 07/25/2022 10 :21 AM EDT documented as of this encounter Plan of Treatment Not on file documented as of this encounter Visit Diagnoses Diagnosis Irregular periods- Primary documented in this encounter Additional Health Concerns Assessment Noted Time PHQ-9 Depression Total Score: 0 12/15/19 23 11:26 AM EDT documented as of this encounter Care Teams Premix Concrete Batcher Relationship Specialty Start Date End Date Vee Perry MD [address] [place] [address] PCP - General Family Medicine 09/25/18 documented as of this encounter
--- OUTSIDE RECORDS SUMMARY | 2025-09-22 18:11 | XMS_ITS | Encounter Summary ---
Author Organization [employer] Address [address] 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
--- OUTSIDE RECORDS SUMMARY | 2025-09-22 18:11 | XMS_ITS | Encounter Summary ---
Author Organization [employer] Address [address] [facility] 7t [place] [address] Care Team Providers Care Counter Hand Name Role Phone Vee Perry MD Primary Care Provider [phone] Reason for Visit * Reason Comments Med Change Request Encounter Details Date Type Department Care Team ([facility] st Contact Info) Description 12/04/2023 Refill [facility] [address] [place] [address] Vee Perry MD [address] [place], [place] [phone] Social History Tobacco Use Types Packs/Day Years [...] documented as of this encounter Visit Diagnoses Not on filedocumented in this encounter Additional Health Concerns Assessment Noted Time PHQ-9 Depression Total Score: 0 12/15/19 23 11:26 AM EDT documented as of this encounter Care Teams Counter Hand Relationship Specialty Start Date End Date Vee Perry MD [address] [place] [address] PCP - General Family Medicine 09/25/18 documented as of this encounter
--- OUTSIDE RECORDS SUMMARY | 2025-09-22 18:11 | XMS_ITS | Encounter Summary ---
Author Organization [employer] Address [address] [facility] 7t [place] [address] Care Team Providers Care Lightning Protection Installer Name Role Phone Vee Perry MD Primary Care Provider [phone] Encounter Details Date Type Department Care Team ([facility] st Contact Info) Description 09/14/2023 Orders Only [facility] MED[facility]INE [address] [place], [place] [phone] Vee Perry MD [address] [place], [place] [phone] Irregular periods (Primary Dx) Social History Tobacco [...] as of this encounter Plan of Treatment Scheduled Orders Name Type Priority Associated Diagnoses Orde r Schedule [facility] Lab Routine Irregular periods Expected: 09/14/2023, Expires: 09/14/2024 Estrogen, Total, Serum Lab Routine Irregular periods Expected: 09/14/2023 (Approximate), Expires: 09/14/2024 Androstenedione Lab Routine Irregular periods Expected: 09/14/2023 (Approximate), Expires: 09/14/2024 Prolactin Lab Routine Irregular periods Expected: 09/14/2023 (Approximate), Expires: 09/14/2024 documented as of this encounter Visit Diagnoses Diagnosis Irregular periods- Primary documented in this encounter Additional Health Concerns Assessment Noted Time PHQ-9 Depression Total Score: 0 12/15/19 23 11:26 AM EDT documented as of this encounter Care Teams Lightning Protection Installer Relationship Specialty Start Date End Date Vee Perry MD [address] [place] [address] PCP - General Family Medicine 09/25/18 documented as of this encounter
--- OUTSIDE RECORDS SUMMARY | 2025-09-22 18:11 | XMS_ITS | Encounter Summary ---
Author Organization [facility] Address [address] [place] [address] Care Team Providers Care Juvenile Correctional Officer Name Role Phone Vee Perry Primary Care Provider [phone] Encounter Details Date Type Department Care Team (Late st Contact Info) Description 08/08/2025 Gamemaster Message [facility] [address] [phone] Mychart, Generic Provider [address] [place] [address] Refills Social History Tobacco Use Types Packs/Day Years [...] Info) Description 11/20/2025 10:40 AM EST Follow-Up [facility] [address] [place] [address] Stencil Typist: Shelli Telles MD [address] [place] [address] 11/27/2025 8:30 AM EST Office Visit [facility] [address] [facility] [place] [address] Stencil Typist: Sharonda Pearce MD [address] [place] [address] 12/04/2025 10:00 AM EDT Office Visit [facility] [address] [place] [address] Stencil Typist: Racquel Johansen NP [address] [place] [address] 03/19/2026 10:00 AM EDT Office Visit [facility] Dermatology Clinic 4th Floor [address] [facility], [place] [address] Stencil Typist: Michelle Lee MD [address] [place] [address] documented as of this encounter Visit Diagnoses Not on filedocumented in this encounter Care Teams Juvenile Correctional Officer Relationship Specialty Start Date End Date Vee Perry [address] [place] [address] PCP - General Family Medicine 12/30/22 documented as of this encounter
--- OUTSIDE RECORDS SUMMARY | 2025-09-22 18:11 | XMS_ITS | Encounter Summary ---
Author Organization [employer] Address [address] [facility] 7t [place] [address] Care Team Providers Care Transmission And Protection Engineer Name Role Phone Vee Perry MD Primary Care Provider [phone] Encounter Details Date Type Department Care Team (Latest Contact Info) Description 09/22/2025 Travel Social History Tobacco Use Types Packs/Day Years [...] documented as of this encounter Care Teams Transmission And Protection Engineer Relationship Specialty Start Date End Date Vee Perry MD [address] [place] [address] PCP - General Family Medicine 09/25/18 documented as of this encounter
--- OUTSIDE RECORDS SUMMARY | 2025-09-22 18:11 | XMS_ITS | Encounter Summary ---
Author Organization [employer] Address [address] [place] [address] Care Team Providers Care Cash Application Representative Name Role Phone Vee Perry MD Primary Care Provider [phone] Reason for Referral * Consultation (Routine) - Authorized Specialty Diagnoses / Procedures Referred By Contac t Referred To Contact Urology Diagnoses Nephrolithiasis Vee Perry MD [address] [place] [address] Phone: tel[facility] [address] [place] [address] Phone: tel: fax: Referral ID Status Reason Start Date Expiration Date Visits Requested Visits Authorized [id number] Authorized Specialty Services Required 08/04/2026 1 1 Encounter Details Date Type Department Care Team (Late st Contact Info) Description 08/04/2025 Orders Only [facility] MEDICINE [address] [place] [phone] Vee Perry MD [address] [place] [phone] Nephrolithiasis (Primary Dx) Social History Tobacco Use [...] of this encounter Plan of Treatment Scheduled Referrals Name Type Priority Associated Diagnoses Orde r Schedule Referral to Urology Outpatient Referral Routine Nephrolithiasis Expected: 08/04/2025 (Approximate), Expires: 08/04/2026 documented as of this encounter Visit Diagnoses Diagnosis Nephrolithiasis- Primary Calculus of kidney documented in this encounter Additional Health Concerns Assessment Noted Time PHQ-9 Depression Total Score: 3 02/06/20 25 10:13 AM EDT documented as of this encounter Care Teams Cash Application Representative Relationship Specialty Start Date End Date Vee Perry MD [address] [place] [address] PCP - General Family Medicine 09/25/18 documented as of this encounter
--- OUTSIDE RECORDS SUMMARY | 2025-09-22 18:11 | XMS_ITS | Clinical Summary ---
Author Organization [facility] Address [address] [place] [address] Care Team Providers Care [employer] Man Name Role Phone Guillermina Perryo Primary Care Provider [phone] Allergies Active Allergy Reactions Criticality Noted Date Comments Apple Juice Anaphylaxis High 02/05/2025 Bee Venom Protein (Honey Bee) Anaphylaxis,Hives,Swelling High 11/21/2024 Oat Bran Heartburn 04/18/2024 [place] Itching,Palpitations,Rash 11/21/2024 Peanut Abdominal Pain,Hives,Swelling High 11/21/2024 [...] By Mouth Every Evening 11/22/19 24 Active folic acid (FOLVITE) 1 mg tabletIndicati ons:Rheumatoid arthritis of multiple sites with negative rheumatoid factor Take 1 tablet (1 mg total) by mouth once a day. 90 tablet 3 08/15/2025 1:38 AM EST 11/21/19 25 Active adalimumab (Humira,CF, Pen) 40 mg/0.4 mL pen injector kitIndications :Rheumatoid arthritis of multiple sites with negative rheumatoid factor Inject 0.4 mL (40 mg total) under the skin every 14 days. 0.8 mL 5 09/12/2025 4:00 PM EST 04/17/20 25 Active atorvastatin (LIPITOR) 10 mg tablet Take 10 mg by mouth daily. 05/28/20 25 Active sennosides-doc usate sodium (PERICOLACE) 8.6-50 mg Take 1 or 2 tablets by mouth once daily 05/28/20 Active ketoconazole (NIZORAL) 2% shampooIndicat ions:Alopecia Use to wash scalp 2-3 times weekly - Apply to damp skin, lather, leave on 5 to 10 minutes, and rinse. 120 mL 5 09/12/2025 4:00 PM EST 08/28/20 Active minoxidiL (LONITEN) 2.5 mg tabletIndicati ons:Alopecia Start 1/4 tablet by mouth daily for 2 weeks, then increase to 1/2 tablet daily. 15 tablet 3 09/12/2025 4:00 PM EST 08/28/20 25 Active Active Problems Problem Noted Date Diagnosed Date Constipation 06/04/2025 Dyslipidemia 06/04/2025 Obesity 05/28/2025 Rheumatoid arthritis involvi ng multiple sites with positive rheumatoid factor 05/22/2025 Bilateral hip pain 02/05/2025 Abnormal uterine bleeding (AUB) 06/16/2023 Adjustment disorder with mixed anxiety and depre ssed mood 12/14/2022 Anosmia 12/14/2022 Asthma 12/14/2022 Dysgeusia 12/14/2022 Allergic rhinitis 01/19/2015 Irregular periods 01/19/2015 Migraine 04/24/2014 Fibromyalgia 07/05/2013 Long-term use of immunosuppressant medication Encounters Date Type Department Care Team Description 08/29/2025 9:30 AM EST Telehealth [facility] Building Breast [facility] [address] [place] [address] Glassware Maker Demonstrator: Racquel Johansen NP Axillary adenopathy (Primary Dx) 08/28/2025 9:15 AM EST Office Visit [facility] D[facility]atology [facility] 4th Floor [address], [place] [phone] Glassware Maker Demonstrator: Kacy Arshad PA Alopecia (Primary Dx) 08/12/2025 Transcribe Orders [facility]erral [facility] [address] [place] [address] Vee Perry Nephrolithiasis (Primary Dx) 08/08/2025 myChart Message [facility] Building [address] [place] [id number] Mychart, Generic Provider Refills from Last 3 Months Social History Tobacco [...] Orientation Straight 05/15/2025 12 :18 PM EDT Last Filed Vital Signs Vital Sign Reading Time Taken Comments Blood Pressure 124/86 05/30/2025 9:35 AM EDT Pulse 78 05/30/2025 9:35 AM EDT Temperature 36.7 C (98 F) 05/30/2025 9:35 AM EDT Respiratory Rate 16 05/30/2025 9:35 AM EDT Oxygen Saturation 98% 05/30/2025 9:35 AM EDT Inhaled Oxygen Concentration - - Weight 67.6 kg (149 lb) 05/30/2025 9:35 AM EDT Height 147.8 cm (4' 10.19 ) 05/30/2025 9:35 AM E DT Body Mass Index 30.94 05/30/2025 9:35 AM EDT Plan of Treatment Upcoming Encounters Date Type Department Care Team (Late st Contact Info) Description 11/20/2025 10:40 AM EST Follow-Up [facility] Rheumatology Clinic [address] [place] [id number] Glassware Maker Demonstrator: Shelli Telles MD [address] [place] [phone] 11/27/2025 8:30 AM EST Office Visit [facility] Urology Clinic [address] [place] [address] Glassware Maker Demonstrator: Sharonda Pearce MD [address] [place] [id number] 12/04/2025 10:00 AM EDT Office Visit [facility] [place] [address] [place] [address] Glassware Maker Demonstrator: Racquel Johansen V, KITCHEN STEWARDESS [address] [place] [address] 03/19/2026 10:00 AM EDT Office Visit [facility] Dermatology Clinic 4th Floor [address], [place] [phone] Glassware Maker Demonstrator: Michelle Lee MD [address] [place] [phone] Health Maintenance Due Date Last Done Comments Cervical Cancer Screening 1983 HIV Screening 1983 HPV and Pap Smear 1983 Pap Smear 1983 Varicella Vaccines (1 of 2 - 13+ 2-dose series) 1996 Hepatitis B Vaccines (1 of 3 - 19+ 3-dose series) 2002 Alcohol/Substance Use Screening 09/25/2024 Depression Screening and Follow-Up 09/25/2024 Social Drivers of Health Adia ual Screening 09/25/2024 Influenza Vaccine (#1) 2025 , 08/05/2020, 06/28/2019, Additional history exists COVID-19 Vaccine (4 - 2024-2 6 season) 2025 07/21/2021, 01/07/2021, 12/10/2020 Mammogram 07/27/2025 07/27/2023 Diabetes Screening 11/21/2027 11/21/2024, 01/15/2024 Pneumococcal Vaccine: Pediat gabe (0-5 Years) and At-Risk Patients (6-50 Years) (3 of 3 - PCV20 or PCV21) 2033 01/19/2015, 04/27/2011 DTaP,Tdap,and Td Vaccines (3 - Td or Tdap) 05/29/2034 05/29/2024, 04/27/2011 Hepatitis C Screening Completed 01/15/2024 Procedures * Due to [place] law, this organization might not be sharing negative HIV tests. Procedure Name Priority Date/Time Associated Diagnosis Comments COMPREHENSIVE METABOLIC PANEL Routine 11/21/2024 11:35 AM EST Rheumatoid arthritis of multiple sites with negative rheumatoid factor Alopecia HEPATITIS C ANTIBODY W/REFLEX TO HCV RNA, QUANTITATIVE PCR Routine 01/15/2024 2:50 PM EDT Rheumatoid arthritis of multiple sites with negative rheumatoid factor from Last 3 Months or Most Recently Relevant to Health Maintenance Results * Due to [place] law, this organization might not be sharing negative HIV tests. * (ABNORMAL) Comprehensive Metabolic Panel (11/21/2024 11:35 AM EST) NA 138 135 - 145 mmol/L 11/21/2024 12:27 PM [facility] K 4.1 3.5 - 5.3 mmol/L 11/21/2024 12:27 PM [facility] Cl 103 98 - 107 mmol/L 11/21/2024 12:27 PM [facility] CO2 25 22 - 32 mmol/L 11/21/2024 12:27 PM [facility] Anion Gap 10 5 - 15 11/21/2024 12:27 PM [facility] Glucose 89 65 - 99 mg/dL 11/21/2024 12:27 PM [facility] Creatinine 0.68 0.50 - 1.20 mg/dL 11/21/2024 12:27 PM [facility] Calcium 9.0 8.6 - 10.5 mg/dL 11/21/2024 12:27 PM [facility] Total Protein 7.2 6.0 - 8.0 g/dL 11/21/2024 12:27 PM [facility] Albumin 4.2 3.5 - 5.2 g/dL 11/21/2024 12:27 PM [facility] Bilirubin, Total 0.3 0.2 - 1.2 mg/dL 11/21/2024 12:27 PM [facility] Alkaline Phosphatase 83 35 - 129 U/L 11/21/2024 12:27 PM [facility] AST 26 10 - 40 U/L 11/21/2024 12:27 PM [facility] ALT 20 10 - 40 U/L 11/21/2024 12:27 PM [facility] BUN 11 7 - 23 mg/dL 11/21/2024 12:27 PM [facility] eGFR >90 >=60 mL/min/1. 73m2 11/21/2024 12:27 PM [facility] Comment:The estimated glomer [...] - 4.2 g/dL 11/21/2024 12:27 PM EST [facility] A/G Ratio 1.4(L) 1.5 - 3.0 11/21/2024 12:27 PM EST [facility] Blood Structure of peripheral vein / Unknown Venipuncture / Unknown 11/21/2024 11:35 AM EST 11/21/2024 11:53 AM EST us Shelli Billings MD LAB BLOOD ORDERABLES Final Res ult [facility] [address] [place] [address], * Hepatitis C Antibody w/Reflex to HCV RNA, Quantitative PCR (01/15/2024 2:50 PM EDT) Hepatitis C Antibody NON-REACT BRITTA NON-REACT BRITTA 01/16/2024 1:15 AM EDT [employer] [facility] Comment: HCV antibody was non-reactive. There is no laboratory evidence of HCV infection. In most cases, no further action is required. However, if recent HCV exposure is suspected, a test for HCV RNA (test code 05992) is suggested. For additional information please refer to http://education.Inspirato/faq/FPZ57h0 (This link is being provided for informational/ educational purposes only.) Blood Structure of peripheral vein / Unknown Venipuncture / Unknown 01/15/2024 2:50 PM EDT 01/15/2024 3:09 PM EDT Narrative [facility] - 01/16/2024 1:15 AM EDT [facility] Received Date: Shelli Billings MD LAB BLOOD ORDERABLES Final Res ult [place] [address] [facility] [address]rd Floor, [address] [facility] [place] [address], [place] [phone] [employer] [facility] [address] [facility] 3rd Floor, [address] [facility] [place] [place] [address], [place] [phone] from Last 3 Months or Most Recently Relevant to Health Maintenance Insurance [facility] HSNO/FREE CARE Care Teams Field Art[employer] Fire [employer] Man Relationship Specialty Start Date End Date Vee Perry [address] [place] [phone] PCP - General Family Medicine 12/30/22
--- OUTSIDE RECORDS SUMMARY | 2025-09-22 18:11 | XMS_ITS | Clinical Summary ---
Author Organization [employer] Address [address] [place] [address] 7[address] [place] [address] Care Team Providers Care Register In Chancery Name Role Phone Vee Perry MD Primary Care Provider [phone] Allergies Active Allergy Reactions Criticality Noted Date Comments Apple Fruit Extract Anaphylaxis High 02/05/2025 Honey Bee Venom Anaphylaxis High 02/05/2025 Oatmeal 04/18/2024 Prunus Persica Anaphylaxis High 02/05/2025 Peanut-Containing Drug Products Anaphylaxis High Medications * This document contains information received from the source organization and may not represent a complete record from that organization. Humira Pen 40 MG/0.4ML Pen-injector Kit pen-injector INJECT 1 PEN SUBCUTANEOUSLY EVERY OTHER WEEK 023 Active cyclobenzapri ne (Flexeril) 5 MG tablet TAKE 2 TABLETS BY MOUTH EVERY DAY AT BEDTIME NEEDED 023 Active meloxicam (Mobic) 15 MG tablet Take 15 mg by mouth if needed each day. 023 Active sodium chloride 3% nebulizer solution Use 1 dose every 6 hours as needed for difficulty breathing 90 mL 1 023 Active Mometasone Furoate (Asmanex HFA) 200 MCG/ACT aerosol SMARTSI Puff(s) By Mouth Morning-Night 024 Active cetirizine (ZyrTEC) 10 MG tablet Take 1 tablet (10 mg) by mouth Once per day. 90 tablet 3 024 Active montelukast (Singulair) 10 MG tablet Take 1 tablet (10 mg) by mouth Once per day. Take 1 tablet by mouth in the evening 90 tablet 3 024 Active phentermine 30 MG capsule Take 1 capsule (30 mg) by mouth before breakfast. 30 capsule Active atorvastatin (Lipitor) 10 MG tablet Take 1 tablet (10 mg) by mouth Once per day. 30 tablet 11 5 9:40 AM EST 025 2025 Active senna-docusat e sodium (Senokot-S) 8.6-50 MG tablet Take 1 or 2 tablets by mouth once daily 30 tablet 11 5 9:40 AM EST Active albuterol (2.5 MG/3ML) 0.083% nebulizer solution INHALE 1 AMPULE USING A NEBULIZER EVERY 6 HOURS NEEDED FOR WHEEZING 90 mL 3 5 9:40 AM EST 025 Active Arnuity Ellipta 100 MCG/ACT inhaler INHALE 1 PUFF BY MOUTH EVERY DAY IN THE MORNING, RINSE MOUTH AFTER USING., DO NOT SWALLOW 30 each 3 5 9:40 AM EST Active Ventolin HFA 108 (90 Base) MCG/ACT inhaler INHALE 2 PUFFS BY MOUTH FOUR TIMES DAILY NEEDED 18 g 3 Active EPINEPHrine (Epipen) 0.3 MG/0.3ML injection syringe INJECT INTRAMUSCULARLY DIRECTED ON PACKAGE AND GO TO EMERGENCY ROOM 2 each 1 Active ibuprofen 400 MG tablet Take 1 tablet by mouth every 4 (four) hours if needed for moderate pain. Active ketoconazole (NIZOral) 2 % shampoo Use to wash scalp 2-3 times weekly - Apply to damp skin, lather, leave on 5 to 10 minutes, and rinse. Active minoxidil (Loniten) 2.5 MG tablet Start 1/4 tablet by mouth daily for 2 weeks, then increase to 1/2 tablet daily. Active EPINEPHrine (Epipen) 0.3 MG/0.3ML injection syringe INJECT INTRAMUSCULARLY DIRECTED ON PACKAGE AND GO TO EMERGENCY ROOM 2 each 1 025 2024 Discontinued Active Problems Problem Noted Date Diagnosed Date Nephrolithiasis 09/21/2025 Assessment & Plan (09/21/2025 5:28 PM EST): - Seen in [facility] ED on 07/01/2025 due to right lower quadrant pain. CT scan showed normal appendix, and a 4 mm size right kidney stone, obstructing the proximal right ureter and with mild right hydronephrosis. - Prescribed tamsulosin in ED, and was advised to follow-up with urology Left axillary pain 09/21/2025 Assessment & Plan (09/21/2025 5:30 PM EST): - Followed by [facility], last visit in August 2025. - Being arranged for diagnostic mammography and ultrasound Left axillary swelling 09/21/2025 Dyslipidemia 06/04/2025 Assessment & Plan (09/21/2025 5:28 PM EST): - most recent lipid profile in January 2025 - start atorvastatin 10 mg qhs - Treatment Hx: patient disliked rosuvastatin 5 mg due to headache - Continue working on lifestyle modification Assessment & Plan (06/04/2025 5:15 PM EDT): - most recent lipid profile in January 2025 - start atorvastatin 10 mg qhs - Treatment Hx: patient disliked rosuvastatin 5 mg due to headache - Continue working on lifestyle modification Constipation 06/04/2025 Assessment & Plan (06/04/2025 5:21 PM EDT): - fiber-rich diet, adequate water intake - start senna-docusate Obesity 05/28/2025 Assessment & Plan (09/21/2025 5:28 PM EST): - Continue working on lifestyle modifications - Due to her RA, her exercise capacity is sometimes limited - Patient would like to try GLP1RA - Start phentermine as step-therapy Dietary Recommendations: Fruits, vegetables, whole grains, protein foods, and fat-free or low-fat dairy products are healthy choices. Eat different types of protein foods in your diet. This can include seafood, lean meats, poultry, beans, peas, lentils, nuts, seeds, soy products, and eggs. Limit foods and beverages higher in added sugars, saturated fat, and sodium. Exercise Recommendations: At least 150 minutes of moderate-intensity physical activity per week, or an equivalent combination of moderate- and vigorous-intensity activity Assessment & Plan (06/04/2025 5:11 PM EDT): - Continue working on lifestyle modifications - Due to her RA, her exercise capacity is sometimes limited - Patient would like to try GLP1RA - Start phentermine as step-therapy Dietary Recommendations: Fruits, vegetables, whole grains, protein foods, and fat-free or low-fat dairy products are healthy choices. Eat different types of protein foods in your diet. This can include seafood, lean meats, poultry, beans, peas, lentils, nuts, seeds, soy products, and eggs. Limit foods and beverages higher in added sugars, saturated fat, and sodium. Exercise Recommendations: At least 150 minutes of moderate-intensity physical activity per week, or an equivalent combination of moderate- and vigorous-intensity activity Bilateral hip pain 02/05/2025 Assessment & Plan (02/05/2025 12:18 PM EDT): - Trochanteric bursitis received a steroid injection on 11/21/24 from [facility] Abnormal uterine bleeding (AUB) 06/16/2023 Assessment & Plan (06/04/2025 5:16 PM EDT): - chronic, mainly irregular and dysmenorrhea, not heavy - normal pelvic US in 2014 and 2022 (Nabothian cyst) - normal PAP and negative high-risk HPV in May 2024 Assessment & Plan (05/31/2024 1:19 PM EDT): - chronic, mainly irregular and dysmenorrhea, not heavy - normal pelvic US in 2014 and 2022 (Nabothian cyst) - normal PAP and negative high-risk HPV in May 2019 - referred to [facility], but patient was unable to attend the appointment; advised to reschedule if her cotest is abnormal Assessment & Plan (06/16/2023 5:36 AM EDT): - chronic - normal pelvic US in 2014 - normal PAP and negative high-risk HPV in May 2019 - re-evaluate with US Anosmia 12/14/2022 Assessment & Plan (06/16/2023 5:38 AM EDT): COVID in Jun 2022 Resolved Assessment & Plan (12/21/2022 6:44 PM EDT): COVID in Jun 2022 Still has a difficulty with smell and taste Refer to ENT Dysgeusia 12/14/2022 Assessment & Plan (06/16/2023 5:38 AM EDT): - resovled Adjustment disorder with mixed anxiety and depre ssed mood 12/14/2022 Assessment & Plan (06/16/2023 5:34 AM EDT): - improved Assessment & Plan (12/14/2022 1:10 PM EDT): -Pt is having stressful situation with her son and his classmate -Pt has limited insurance to receive counseling at this time, will check without Behavioral health team to see if patient can receive counseling Asthma 12/14/2022 Assessment & Plan (06/04/2025 5:20 PM EDT): - Previously on ICS and SHALONDA - Consider SMART - Upcoming appointment with operations engineer; will wait their recommendation Assessment & Plan (02/05/2025 8:54 AM EDT): - Continue Flovent 220mcg BID - Continue albuterol HFA and neb - Continue montelukast for both asthma and allergic rhinitis Assessment & Plan (05/29/2024 10:38 AM EDT): - Continue Flovent 220mcg BID - Continue albuterol HFA and neb - Continue montelukast for both asthma and allergic rhinitis Assessment & Plan (06/16/2023 5:37 AM EDT): - Continue Flovent 220mcg BID - Continue albuterol HFA and neb - Continue montelukast for both asthma and allergic rhinitis Assessment & Plan (12/14/2022 1:10 PM EDT): -Pt is Rx Flovent 110mcg BID ; will increase to 220mcg BID -Will add Cetirizine and Singulari for allergic rhinitis Allergic rhinitis 01/19/2015 Assessment & Plan (06/04/2025 5:07 PM EDT): -Continue Cetirizine -Continue montelukast -Referred to ENT Specialist in November 2022. Pt did not go Assessment & Plan (02/05/2025 8:53 AM EDT): -Continue Cetirizine -Continue montelukast -Referred to ENT Specialist in November 2022. Pt did not go Assessment & Plan (06/16/2023 5:34 AM EDT): -Continue Cetirizine -Continue montelukast -Referred to ENT Specialist in November 2022. Pt did not go Assessment & Plan (12/14/2022 1:09 PM EDT): -Restart Cetirizine -Add Singulair -Refer to ENT Specialist Irregular periods 01/19/2015 Assessment & Plan (06/04/2025 5:12 PM EDT): - chronic - previously had normal pelvic US Assessment & Plan (02/05/2025 12:20 PM EDT): - Chronic, now with hot flash - Will check lab to assess if she is having ovarian failure Migraine 04/24/2014 Assessment & Plan (06/16/2023 5:28 AM EDT): - optimize treatment for allergic rhinitis - improve sleep hygiene - stress reduction - acupuncture Fibromyalgia 07/05/2013 Assessment & Plan (09/21/2025 5:28 PM EST): -Continue judicious use of cyclobenzaprine -Continue Yoga -Optimize Tx for anxiety / adjustment disorder / depression -Recommended aupuncture Assessment & Plan (06/04/2025 5:17 PM EDT): -Continue judicious use of cyclobenzaprine -Continue Yoga -Optimize Tx for anxiety / adjustment disorder / depression -Recommended aupuncture Assessment & Plan (02/05/2025 8:54 AM EDT): -Continue judicious use of cyclobenzaprine -Continue Yoga -Optimize Tx for anxiety / adjustment disorder / depression -Recommended aupuncture Assessment & Plan (05/29/2024 10:38 AM EDT): -Continue judicious use of cyclobenzaprine -Continue Yoga -Optimize Tx for anxiety / adjustment disorder / depression -Recommended aupuncture Assessment & Plan (06/16/2023 5:34 AM EDT): -Continue judicious use of cyclobenzaprine -Continue Yoga -Optimize Tx for anxiety / adjustment disorder / depression -Recommended aupuncture Assessment & Plan (12/21/2022 6:47 PM EDT): -Continue judicious use of cyclobenzaprine -Continue Yoga -Optimize Tx for anxiety / adjustment disorder / depression -Recommended aupuncture Long-term use of immunosuppressant medication Assessment & Plan (09/21/2025 5:28 PM EST): - discussed about safety and protection - discussed about keeping immunizations up to date; pt declines immunizations Assessment & Plan (06/04/2025 5:07 PM EDT): - discussed about safety and protection - discussed about keeping immunizations up to date; pt declines immunizations Assessment & Plan (02/05/2025 8:53 AM EDT): - discussed about safety and protection - discussed about keeping immunizations up to date; pt declines immunizations Assessment & Plan (06/16/2023 5:33 AM EDT): - discussed about safety and protection - discussed about keeping immunizations up to date; pt declines immunizations Rheumatoid arthritis (CMS/[facility]) 07/05/2013 Assessment & Plan (09/21/2025 5:28 PM EST): - Hot Frame Tender: Dr. Manuelito Graves. Seen in April 2025 - Current medication: adalimumab (Humira) 40 mg q2wk. - Treatment Hx; Arava and prednisone, which were discontinued in 2012 due to side effects, including hair loss and weight gain. Previously following with Dr. Oconnor @ [facility]. - Co-diagnosis of fibromyalgia due to pain in trigger points. She was prescribed cyclobenzaprine for this symptom, but not taking it. - She is prescribed meloxicam for inflammatory arthritic pain, but not taking - Continue Yoga. - Recommended acupuncture. Assessment & Plan (06/04/2025 5:18 PM EDT): - Hot Frame Tender: Dr. Manuelito Graves. Seen in April 2025 - Current medication: adalimumab (Humira) 40 mg q2wk. - Treatment Hx; Arava and prednisone, which were discontinued in 2012 due to side effects, including hair loss and weight gain. Previously following with Dr. Oconnor @ [facility]. - Co-diagnosis of fibromyalgia due to pain in trigger points. She was prescribed cyclobenzaprine for this symptom, but not taking it. - She is prescribed meloxicam for inflammatory arthritic pain, but not taking - Continue Yoga. - Recommended acupuncture. Assessment & Plan (02/05/2025 10:42 AM EDT): - Hot Frame Tender: Dr. Manuelito Graves. Seen in October 2024 - Current medication: Humira 40 mg q2wk. - Treatment Hx; Arava and prednisone, which were discontinued in 2012 due to side effects, including hair loss and weight gain. Previously following with Dr. Oconnor @ [facility]. - Co-diagnosis of fibromyalgia due to pain in trigger points. She was prescribed cyclobenzaprine for this symptom, but not taking it. - She is prescribed meloxicam for inflammatory arthritic pain, but not taking - Continue Yoga. - Recommended acupuncture. Assessment & Plan (05/31/2024 12:45 PM EDT): - Hot Frame Tender: Dr. Manuelito Graves. Seen in December 2023 - Current medication: Humira 40 mg q2wk. - Treatment Hx; Arava and prednisone, which were discontinued in 2012 due to side effects, including hair loss and weight gain. Previously following with Dr. Oconnor @ [facility]. - Co-diagnosis of fibromyalgia due to pain in trigger points. She was prescribed cyclobenzaprine for this symptom, but not taking it. - She is prescribed meloxicam for inflammatory arthritic pain, but not taking - Continue Yoga. - Recommended acupuncture. Assessment & Plan (06/16/2023 5:27 AM EDT): - Hot Frame Tender: Dr. Oconnor @ [facility], last seen 10/28/22 - Current medication: Humira 40 mg q2wk. - Treatment Hx; Arava and prednisone, which were discontinued in 2012 due to side effects, including hair loss and weight gain. - Co-diagnosis of fibromyalgia due to pain in trigger points. She was prescribed cyclobenzaprine for this symptom, but not taking it. - She is prescribed meloxicam for inflammatory arthritic pain, but not taking - Continue Yoga. - Recommended acupuncture. Assessment & Plan (12/21/2022 6:47 PM EDT): - Hot Frame Tender: Dr. Oconnor @ [facility], last seen 10/28/22 - Current medication: Humira 40 mg q2wk. - Treatment Hx; Arava and prednisone, which were discontinued in 2012 due to side effects, including hair loss and weight gain. - Co-diagnosis of fibromyalgia due to pain in trigger points. She was prescribed cyclobenzaprine for this symptom, but not taking it. - She is prescribed meloxicam for inflammatory arthritic pain, but not taking - Continue Yoga. - Recommended acupuncture. Encounters Date Type Department Care Team Description 09/22/2025 10:15 AM EST Office Visit [facility] [address] [place] [id number] Vee Perry MD Class 1 obesity with serious comorbidity and body mass index (BMI) of 30.0 to 30.9 in adult, unspecified obesity type (Primary Dx); Rheumatoid arthritis of multiple sites with negative rheumatoid factor (CMS/HCC) (HCC); Fibromyalgia; Long-term use of immunosuppressant medication; Dyslipidemia; Nephrolithiasis; Left axillary pain; Left axillary swelling; Dysuria; Encounter for immunization 09/22/2025 Travel 09/16/[address] [address] Vee Perry MD chart prep 09/11/[address] [address] Vee Perry MD 08/04/2025 Orders Only [address] [address] Vee Perry MD Nephrolithiasis (Primary Dx) 08/04/[address] [address] Vee Perry MD Referral; er status check 07/30/2025 Orders Only [address] [phone] Vee Perry MD from Last 3 Months Immunizations Immunization Administration Dates Next Due Hep B, adult 09/22/2025 Influenza Injectable Quadriv alant Preservative Free IIV4 MDCK 08/05/2020 Influenza injectable quadriv alent IIV4 with preservative 06/28/2019,06/14/2018,09/07/2017 Influenza injectable quadriv alent preservative free 07/30/2021,09/02/2016,07/02/2015,07/16 Influenza, Split (incl. honey fied surface antigen) 07/05/2013 Influenza, seasonal, injecta ble, preservative free 09/22/2025 Pneumococcal Conjugate PCV 13 01/19/2015 Pneumococcal Polysaccharide PPSV23 04/27/2011 Tdap 05/29/2024,04/27/2011 Social History Tobacco Use Types Packs/Day Years Used Date Smoking Tobacco: Never Passive Smoke Exposure: Never Smokeless Tobacco: Never Tobacco Cessation:Counseling Given: Not Answered Alcohol Use Standard Drinks/Week Comments Never 0 [...] Orientation Straight 07/25/2022 10 :21 AM EDT Last Filed Vital Signs Vital Sign [...] Mass Index 30.09 09/22/2025 10:37 AM EST Plan of Treatment Health Maintenance Due Date Last Done Comments HIV Screening 1985 Family Planning (PISQ) 1998 HPV Vaccines (1 - 3-dose series) 1998 Hepatitis C Screening 2001 COVID-19 Vaccine (4 - 2024- season) 2025 07/21/2021, 01/07/2021, 12/10/2020 Hepatitis B Vaccines (2 of 3 - 19+ 3-dose series) 10/20/2025 09/22/2025 Alcohol/Substance Use Screening 02/05/2026 02/05/2025 Depression Screening 02/05/2026 02/05/2025, 02/06/20 25 Disability Screening 02/05/2026 02/05/2025 SDOH Screening 02/05/2026 02/05/2025 Mammogram 07/29/2026 07/29/2024, 10/2022, 07/27/2023 Tobacco Screening 09/22/2026 09/22/2025 Pap Smear 05/29/2027 05/29/2024 Cervical Cancer Screening 05/29/2029 HPV/Cotest 05/29/2029 05/29/2024, 06/03/2019 Lipid Panel 02/05/2030 02/05/2025, 05/27, 06/23/2022 Pneumococcal Vaccine: Pediatrics (0 to 5 Years) and At-Risk Patients (6 to 49) Years (3 of 3 - PCV20 or PCV21) 2033 01/19/2015, 04/27/2011 Zoster Vaccines (1 of 2) 2033 DTaP/Tdap/Td Vaccines (3 - Td or Tdap) 05/29/2034 05/29/2024, 04/27/2011 RSV Patients and Patients Aged 60 years or older (1 - 1-dose 75+ series) 2058 Influenza Vaccine Completed 09/22/2025, , 08/05/2020, Additional history exists HIB Vaccines Aged Out No longer eligi ble based on patient's age to complete this topic Hepatitis A Vaccines Aged Out No long er eligible based on patient's age to complete this topic IPV Vaccines Aged Out No longer eligi ble based on patient's age to complete this topic Meningococcal B Vaccine Aged Out No l onger eligible based on patient's age to complete this topic Meningococcal Vaccine Aged Out No pedrito rolando eligible based on patient's age to complete this topic RSV under 20 months Aged Out No longe r eligible based on patient's age to complete this topic Rotavirus Vaccines Aged Out No longer eligible based on patient's age to complete this topic Procedures Procedure Name Priority Date/Time Associated Diagnosis Comments POCT URINALYSIS DIPSTICK Routine 09/22/2025 12:00 PM EST Dysuria LIPID PANEL WITH REFLEX TO DIRECT LDL Routine 02/05/2025 11:01 AM EDT Screening for lipid disorders BI MAMMOGRAM SCREENING TOMOSYNTHESIS BILATERAL Routine 07/29/2024 8:48 AM EST Breast cancer screening by mammogram THINPREP IMAGING PAP AND HPV MRNA E6/E7 Routine 05/29/2024 12:00 AM EDT from Last 3 Months or Most Recently Relevant to Health Maintenance Results * (ABNORMAL) POCT urinalysis dipstick manually resulted (CPT 11885) (09/22/2025 12:00 PM EST) Color, UA Colorless [...] Media Lot # [id number] Lot# Expiration Date , Urine (Urine, Random) 09/22/2025 12:00 PM EST Vee Perry MD POINT OF CARE TEST ENTER/EDIT OR DERABLES Final Result * (ABNORMAL) Lipid Panel with Reflex to Direct LDL (02/05/2025 11:01 AM EDT) Triglycerides 126 <150 mg/dL [facility] Comment:Desirable Triglyceri de: less than 150 mg/dLBorderline High Triglyceride 150-199 mg/dLHigh Triglyceride: 200-499 mg/dLVery High Triglyceride: greater than or equal to 5OO mg/dL Cholesterol 291(H) <200 mg/dL [facility] Comment:Desirable Cholestero l: less than 200 mg/dLBorderline High Cholesterol: 200-239 mg/dLHigh Cholesterol: greater than 239 mg/dL LDL Cholesterol Calculated 204(H) <100 mg/dL [facility] Comment:Desirable LDL: less than 100 mg/dLNear Optimal/Above Optimal LDL: 110- 129 mg/dLBorderline High LDL: 130-159 mg/dLHigh LDL: 160-189 mg/dLVery High LDL: greater than or equal to 190 mg/dL HDL Cholesterol 62 >40 mg/dL [facility] Comment:Desirable HDL: great er than 40 mg/dL Note: This HDL assay may give artificially low results in patients with liver disease. Blood 02/05/2025 11:0 1 AM EDT 02/05/2025 1:26 PM EDT Vee Perry MD LAB BLOOD ORDERABLES Final Resul t [facility] [address] [place] [phone] * BI Mammogram Screening Tomosynthesis Bilateral (07/29/2024 8:48 AM EST) Anatomical Region Laterality Modality Breast Bilateral Mammography 07/29/2024 8:48 AM EST Narrative 08/06/2024 10:41 AM EST [facility] [address] [place] [address] Mammography Report Signed Patient: Rani Hammond MR#: [id number] : 1985 Acct:[id number] Age/Sex: 39 / F ADM Date: 07/29/24 Loc: [facility] Attending Dr: Vee Perry MD Ordering Physician: Vee Perry MD Results: 1Negative Date of Service: 07/29/24 Follow Up: 1 Year From Orig inal Mammogram Procedure(s): MM tomosynthesis screening BI Accession Number(s): [id number] cc: Vee Perry MD EXAMINATION: MM SCREENING DIGITAL BREAST TOMOSYNTHESIS, BILATERAL CLINICAL INFORMATION: Screening. Asymptomatic. COMPARISON: Mammography: Comparison is made with available priors TECHNIQUE: Digital breast mammography with tomosynthesis is performed in both the craniocaudal and mediolateral oblique views along with computer-aided detection (CAD). FINDINGS: The breasts are heterogeneously dense, which may obscure small masses (ACR BI-RADS breast composition Category c). There are no significant masses, abnormal calcifications, or other abnormalities. MM/MM tomosynthesis screening BI IMPRESSION: No mammographic evidence of malignancy. ASSESSMENT: BI-RADS BI-RADS 1 - Negative RECOMMENDATION: Routine annual mammography screening. 1 year F/U This examination should not preclude the clinical evaluation of a suspicious palpable abnormality. This patient's information was entered into a reminder system with a target due date for their next mammogram. Electronically signed by: Fabiola Lange DO 08/06/2024 10:37 AM EST Dictated By: Fabiola Lange DO Signed By: <Electronically signed by Fabiola Lange DO in OV> 08/06/24 1037 DD/ 0848 TD/TT: 07/29/24 0848 Object Oriented Developer: Procedure Note Donotuseinterpreter, Image - 08/06/2024 [facility] [address] [place] [address] Dr. [place], [place] [address] Mammography Report Signed Patient: Rani Hammond GMR#: [id number] : 1985Acct:[id number] Age/Sex: 39 / FADM Date: 07/29/24 Loc: TI Attending Dr: Vee Perry MD Ordering Physician: Vee Perry MDResults: 1Negative Date of Service: 07/29/24Follow Up: 1 Year From Orig inal Mammogram Procedure(s): MM tomosynthesis screening BI Accession Number(s): [id number] cc: Vee Perry MD EXAMINATION: MM SCREENING DIGITAL BREAST TOMOSYNTHESIS, BILATERAL CLINICAL INFORMATION: Screening. Asymptomatic. COMPARISON: Mammography: Comparison is made with available priors TECHNIQUE: Digital breast mammography with tomosynthesis is performed in both the craniocaudal and mediolateral oblique views along with computer-aided detection (CAD). FINDINGS: The breasts are heterogeneously dense, which may obscure small masses (ACR BI-RADS breast composition Category c). There are no significant masses, abnormal calcifications, or other abnormalities. MM/MM tomosynthesis screening BI IMPRESSION: No mammographic evidence of malignancy. ASSESSMENT: BI-RADS BI-RADS 1 - Negative RECOMMENDATION: Routine annual mammography screening. 1 year F/U This examination should not preclude the clinical evaluation of a suspicious palpable abnormality. This patient's information was entered into a reminder system with a target due date for their next mammogram. Electronically signed by: Fabiola Lange DO 08/06/2024 10:37 AM EST Dictated By: Fabiola Lange DO Signed By: <Electronically signed by Fabiola Lange DO in OV> 08/06/24 1037 DD/ 7 TD/TT: 07/29/24847 Object Oriented Developer: Vee Perry MD IM BI PROCEDURES Final Result * ThinPrep Imaging Pap and HPV mRNA E6/E7 (05/29/2024 12:00 AM EDT) HPV nRNA E6/E7 Not Detected Not Detected [facility] Comment:Methodology: Transcr iption-Mediated AmplificationThis assay detects E6/E7 viral messenger RNA (mRNA) from 14high-risk HPV types (16,18,31,33,35,39,45,51,52,56,58,59,66,68).Cervical sources are required for HPV testing.If a vaginal source from a patient who has had atotal hysterectomy with removal of cervix wassubmitted, please contact the testing laboratoryfor alternative testing options.For additional information, please refer tohttp://education.[employer]/faq/ASG762m0(This link if provided for information/educational purposes only.)THIS TEST WAS PERFORMED AT:[facility] [address] [id number] RYAN MD SOURCE: SEE NOTE [facility] Comment:None given Report Status: [facility] Clinical Information: SEE NOTE [facility] Comment:None given LMP: SEE NOTE [facility] Comment:NONE GIVEN Prev. PAP: SEE NOTE [facility] Comment:NONE GIVEN Prev. BX: SEE NOTE [facility] Comment:NONE GIVEN Statement Of Adequacy: SEE NOTE [facility] Comment:Satisfactory for laureano luation.Endocervical/transformation zone component absent. General Categorization: [facility] Interpretation/Result: SEE NOTE [facility] Comment:Cytology Results: Ne gative for intraepitheliallesion or malignancy. Cytology Comment SEE NOTE [facility] Comment:This Pap test has be en evaluated with computerassisted technology. Hand Binder Stripper: SEE NOTE [facility] Comment:DMM, CT(ASCP)CT scre ening location: [address] [address] Review Hand Binder Stripper: [facility] Pathologist [facility] PAP Infection [facility] See Note SEE NOTE [facility] Comment:EXPLANATORY NOTE:The Pap is a screening test for cervical cancer. It isnot a diagnostic test and is subject to false negativeand false positive results. It is most reliable when asatisfactory sample, regularly obtained, is submittedwith relevant clinical findings and history, and whenthe Pap result is evaluated along with historic andcurrent clinical information. 05/29/2024 05/29/2024 Narrative [facility] - 06/04/2024 1:20 PM EDT SEE SCANNED RESULTS IN EMR us Vee Perry MD LAB PATHOLOGY ORDERABLES Final R esult [facility] [address] [place] [address] [phone] from Last 3 Months or Most Recently Relevant to Health Maintenance Insurance [facility] [employer] Care Teams Register In Chancery Relationship Specialty Start Date End Date Vee Perry MD [address] [place] [phone] PCP - General Family Medicine 09/25/18
--- OUTSIDE RECORDS SUMMARY | 2025-09-22 18:11 | XMS_ITS | Encounter Summary ---
Author Organization [employer] Address [address] [place] [address] Care Team Providers Care Cover Cutter Name Role Phone Vee Perry MD Primary Care Provider [phone] Encounter Details Date Type Department Care Team ([facility] st Contact Info) Description 07/30/2025 Orders Only [facility] [address] [place], [place] [phone] Vee Perry MD [address], [place] [phone] Social History Tobacco Use Types Packs/Day Years [...] documented as of this encounter Care Teams Cover Cutter Relationship Specialty Start Date End Date Vee Perry MD [address] [place] [address] PCP - General Family Medicine 09/25/18 documented as of this encounter
== END 2025-09-22 17:38 ==
LOC: HO.LNP 17:37
PROVIDERS: Visit Provider Family Medicine
DX: N20.0 Calculus of kidney (principal)
CPT/HCPCS: 87086